=== PATIENT | female | born 1985 | race Caucasian/White ===

== ENCOUNTER 2023-03-18 21:30 | Outpatient (OUT) | payer OTHER, SELFPAY ==
[2023-03-22 15:10] LABS: Age Gdln ACOG Testing Note (.); HPV Aptima Negative (Negative); IGP, Aptima HPV, rfx 16/18,45 Note (.)
== END 2023-03-18 21:31 | disposition home or self-care (01) ==
PROVIDERS: Visit Provider Obstetrics & Gynecology
DX: Z01.419 Encounter for gynecological examination (general) (routine) without abnormal findings (principal)
CPT/HCPCS: 87624; G0145

== ENCOUNTER 2024-07-27 20:35 | Outpatient (REF) | payer OTHER, SELFPAY ==
--- OUTSIDE RECORDS SUMMARY | 2024-07-27 20:40 | XMS_ITS | CCD ---
Author Organization [facility] Care Team Providers Care Mechanical Systems Control Engineer Name Role Phone Norma Rosa Unavailable LAILA, DR RAMON Admitting Unavailable LAILA, DR RAMON Attending Unavailable MISC, DR MANN Primary Care Unavailable LAILA, DR RAMON Consulting Unavailable Defrance Maryellen GARIBAY Primary Care Provider MARYELLEN STRONG Attending Unavailable DEFEMILY, MARYELLEN Acosta Referring Unavailable DEFRANCE, MARYELLEN Acosta Primary Care Unavailable DEFMARYELLEN DIAZ Attending Unavailable DEFEMILY, MARYELLEN Acosta Referring Unavailable DEFRANCE, MARYELLEN Acosta Primary Care Unavailable DEFRANCEMARYELLEN Attending Unavailable DEFRANCE, MARYELLEN Acosta Referring Unavailable DEFRANCE, MARYELLEN Acosta Primary Care Unavailable YENNY ULLOA Attending Unavailable LAILAYENNY Attending Unavailable LAILAYENNY Attending Unavailable LAILAYENNY Attending Unavailable Defrance Maryellen GARIBAY Primary Care Provider LETICIA PACHECO Attending Unavailable DEFRANCE, MARYELLEN Referring Unavailable ROSENDALETICIA LOPEZ Attending Unavailable ROSENDALETICIA LOPEZ Referring Unavailable BRENT ALMONTE Attending Unavailable DEFRANCEMARYELLEN Referring Unavailable DEFRANCE, MARYELLEN Acosta Primary Care Unavailable BRENT ALMONTE Attending Unavailable DEFRANCEMARYELLEN Referring Unavailable DEFRANCE, MARYELLEN Acosta Primary Care Unavailable BRENT ALMONTE Attending Unavailable DEFRANCEMARYELLEN Referring Unavailable DEFRANCE, MARYELLEN Acosta Primary Care Unavailable BRENT ALMONTE Attending Unavailable MARYELLEN STRONG Referring Unavailable DEFRANCE, MARYELLEN Acosta Primary Care Unavailable BRENT ALMONTE Attending Unavailable DEFRANCE, MARYELLEN Acosta Referring Unavailable DEFRANCE, MARYELLEN Acosta Primary Care Unavailable BRENT ALOMNTE Attending Unavailable DEFRANCE, MARYELLEN Acosta Referring Unavailable DEFRANCE, MARYELLEN Acosta Primary Care Unavailable BRENT ALMONTE Attending Unavailable DEFRANCE, MARYELLEN Acosta Referring Unavailable DEFRANCE, MARYELLEN Acosta Primary Care Unavailable BRENT ALMONTE Attending Unavailable DEFRANCE, MARYELLEN Acosta Referring Unavailable DEFRANCE, MARYELLEN Acosta Primary Care Unavailable BRENT ALMONTE Attending Unavailable DEFRANCE, MARYELLEN Acosta Referring Unavailable DEFRANCE, MARYELLEN Acosta Primary Care Unavailable DEFRANCE, MARYELLEN Acosta Referring Unavailable DEFRANCE, MARYELLEN Acosta Primary Care Unavailable DEFRANCE, MARYELLEN T Referring Unavailable DEFRANCE, MARYELLEN Acosta Primary Care Unavailable DEFRANCE, MARYELLEN T Referring Unavailable DEFRANCE, MARYELLEN T Primary Care Unavailable BRENT ALMONTE Attending Unavailable DEFRANCE, MARYELLEN Acosta Referring Unavailable DEFRANCE, MARYELLEN Acosta Primary Care Unavailable BRENT ALMONTE Attending Unavailable DEFRANCE, MARYELLEN T Referring Unavailable DEFRANCE, MARYELLEN T Primary Care Unavailable BRENT ALMONTE Attending Unavailable DEFRANCE, MARYELLEN T Referring Unavailable DEFRANCE, MARYELLEN T Primary Care Unavailable BRENT ALMONTE Attending Unavailable DEFRANCE, MARYELLEN Acosta Referring Unavailable DEFRANCE, MARYELLEN Acosta Primary Care Unavailable LETICIA PACHECO Referring Unavailable DEFRANCE, MARYELLEN Acosta Primary Care Unavailable LETICIA PACHECO Referring Unavailable DEFRANCE, MARYELLEN Acosta Primary Care Unavailable DEFRANCE, MARYELLEN Acosta Referring Unavailable DEFRANCE, MARYELLEN Giselle Primary Care Unavailable Rubio Yap MD Primary Care Provider Maryellen Strong MD Primary Care Provider [phone] Allergies Allergy Classification Reported Allergen(s) Allergy Type Date of Onset Reaction(s) Facility (1 source) Amoxicillin Drug Allergy 12-02-2012 [facility] Rep[facility] Medications Current Medications Medication Drug Class(es) Dates Sig (Normalized) Sig (Original) [id number] 200 actuat albuterol 0.09 mg/actuat metered dose inhaler (1 source) beta2-Adrenergic Agonist Start: 07-04-2021 take 2 puff(s) by inhalation four times daily as needed Albuterol Sulfate HFA 108 (90 Base) MCG/ACT 2 puffs Inhalation qid prn Jun, Active ascorbic acid 1000 mg oral tablet (20 sources) Vitamin C take 1 tablet by mouth in the morning ascorbic acid (Vitamin C) 1000 MG tablet Take 1,000 mg by mouth in the morning. Active azithromycin 250 mg oral tablet (1 source) Macrolide Antimicrobial Start: 02-10-2024 End: 02-22-2024 take 1 tablet by mouth in the morning, then take 2 tablets by mouth once daily, then take 1 tablet by mouth once daily azithromycin (ZITHROMAX) 250 mg tablet Take 1 tablet (250 mg total) by mouth in the morning for 12 days. Take 2 tablets the first day, then 1 tablet daily for 4 days.. 6 tablet 1 02/10/2024 02/22/2024 Active bisacodyl 5 mg delayed release oral tablet (19 sources) Stimulant Laxative End: 10-02-2023 take 1 tablet by mouth once daily bisacodyl (Dulcolax) 5 MG EC tablet Take 5 mg by mouth 1 (one) time each day at the same time Active 12 hr buPROPion hydrochloride 100 mg extended release oral tablet (20 sources) Aminoketone Start: 02-27-2023 End: 06-29-2024 take 1 tablet by mouth every twelve hours in the morning buPROPion SR (Wellbutrin SR) 100 MG 12 hr tablet Take 100 mg by mouth in the morning. 02/27/2023 Active take 1 tablet by mouth once elisha y Wellbutrin 100 MG 1 tablet Orally DAILY Active busPIRone hydrochloride 15 m g oral tablet (20 sources) Start: 02-27-2023 End: 03-02-2024 busPIRone (Buspar) 15 MG tablet Take 15 mg by mouth in the morning and 15 mg at noon and 15 mg in the evening. 02/27/2023 Active busPIRone HCl Ac tive dicyclomine hydrochloride 20 mg oral tablet (1 source) Anticholinergic Start: 04-13-2019 Dicyclomine HCl 20 MG 1 tablet Orally PRN for 30 days PRN Mar, Active DULoxetine 60 mg delayed release oral capsule (11 sources) Serotonin and Norepinephrine Reuptake Inhibitor Start: 05-30-2023 End: 02-04-2024 take 1 capsule by mouth in the morning DULoxetine (CYMBALTA) 60 mg capsule Indications: Major depressive disorder, recurrent episode, moderate (CMS-HCC) , Generalized anxiety disorder Take one capsule (60mg) by mouth in the morning. Take one capsule (60mg) by mouth in the afternoon. 60 capsule 6 05/30/2023 Active Start: 02-27-2023 DULoxetine (CY MBALTA) 30 mg capsule Indications: Major depressive disorder, recurrent episode, moderate (CMS-HCC) , Generalized anxiety disorder Take two capsules (60mg) by mouth in the morning. Take one capsule (30mg) by mouth in the afternoon. 90 capsule 3 02/27/2023 Active ethinyl estradiol 0.035 mg / norethindrone 1 mg oral tablet (9 sources) Estrogen Start: 03-18-2023 End: 03-17-2024 norethindrone-ethinyl estrad iol (Ortho-Novum, Nortrel) 1-35 MG-MCG tablet Indications: Well woman exam with routine gynecological exam , Chronic night sweats Take 1 tablet by mouth in the morning. 28 tablet 11 03/18/2023 02/04/2024 Discontinued (Other) Start: 03-18-2023 End: 03-17-2024 take [id number] ug by mouth once in the morning norethindrone-ethin estradioL (ORTHO-NOVUM 35) 1-35 mg-mcg per tablet Take 1 tablet by mouth in the morning. 03/18/2023 10/02/2023 Discontinued (Alternate therapy) famotidine 20 mg oral tablet (13 sources) Histamine-2 Receptor Antagonist Start: 07-01-2023 take 1 tablet by mouth once daily in the morning famotidine (PEPCID) 20 mg tablet take one tablet by mouth every morning 90 tablet 3 07/01/2023 Active Start: 08-27-2022 End: 02-04-2024 take 1 tablet by mouth once daily in the morning famotidine (PEPCID) 20 mg tablet TAKE ONE TABLET BY MOUTH EVERY MORNING 90 tablet 0 04/01/2023 07/01/2023 Discontinued take 1 tablet by lucy th every twenty-four hours Pepcid 20 MG 1 tablet at bedtime as needed Orally Once a day Active Magnesium (9 sources) take 1 tablet by lucy th once daily magnesium 200 MG tablet Take 200 mg by mouth 1 (one) time each day at the same time Active Magnesium 400 MG as directed Orally Once a day Active magnesium oxide 400 mg oral tablet (20 sources) Start: 02-18-2023 End: 07-24-2024 take 1 tablet by mouth in the morning magnesium oxide (MAGOX) 400 mg tablet Take 1 tablet (400 mg total) by mouth in the morning. 180 tablet 1 07/24/2024 Active 24 hr metFORMIN hydrochloride 500 mg extended release oral tablet (20 sources) Biguanide Start: 03-18-2024 take 2 tablets by mouth once daily at mealtime metFORMIN XR (Glucophage-XR) 500 MG 24 hr tablet Indications: Well woman exam with routine gynecological exam , Chronic night sweats , Encounter for weight management TAKE TWO TABLETS BY MOUTH EVERY EVENING. TAKE WITH MEALS. DO NOT CRUSH, CHEW , OR SPLIT 180 tablet 3 03/18/2024 Active Start: 03-18-2023 take 2 tablets by mo uth every twenty-four hours at mealtime metFORMIN XR (Glucophage-XR) 500 MG 24 hr tablet Indications: Well woman exam with routine gynecological exam , Chronic night sweats , Encounter for weight management Take 2 tablets (1,000 mg) by mouth in the evening. Take with meals Do not crush, chew, or split. 60 tablet 11 03/18/2023 Active take 1 tablet by lucy th once daily at breakfast metFORMIN (GLUCOPHAGE) 500 mg tablet Take 1 tablet (500 mg total) by mouth daily with breakfast. Active metoprolol tartrate 25 mg oral tablet (20 sources) beta-Adrenergic Soco Start: 09-26-2022 End: 02-10-2024 take 1 tablet by mouth once metoprolol tartrate (Lopressor) 25 MG tablet Take 25 mg by mouth 1 (one) time 09/26/2022 Active Metoprolol Tartr ate Active ondansetron 4 mg oral tablet (20 sources) Serotonin-3 Receptor Antagonist Start: 08-08-2022 take 1 tablet by mouth every six hours as needed for nausea ondansetron (Zofran) 4 MG tablet Take 4 mg by mouth every 6 (six) hours if needed for nausea 08/08/2022 Active Start: 11-25-2019 take 1 tablet by lucy th every six hours as needed Ondansetron HCl 4 MG 1 tablet Orally every 6 hours as needed for 30 days Nov, Active polyethylene glycol 3350 60527 mg powder for oral solution (6 sources) Osmotic Laxative Start: 01-24-2024 polyethylene glycol (GLYCOLAX) 17 gram/dose powder Take 17 g by mouth in the morning. 01/24/2024 Active microencapsulated potassium chloride 20 meq extended release oral tablet (20 sources) Start: 12-17-2023 take 1 tablet by mouth once daily at bedtime KLOR-CON M20 20 mEq CR tablet TAKE ONE TABLET BY MOUTH EVERY MORNING, AT NOON, IN THE EVENING, AND BEFORE BEDTIME 360 tablet 1 12/17/2023 Active Start: 04-01-2023 End: 12-17-2023 take 1 tablet by mouth at bedtime KLOR-CON M20 20 mEq CR tablet TAKE ONE TABLET BY MOUTH IN THE MORNING, AT NOON, IN THE EVENING AND BEFORE BEDTIME 360 tablet 04/01/2023 12/17/2023 Discontinued take 20 mEq by mouth once daily potassium chloride (Klor-Con) 20 MEQ packet Take 20 mEq by mouth 1 (one) time each day at the same time Active Potassium Chlori de Active psyllium seed, sugar, (METAMUCIL, SUGAR,) powder (6 sources) Start: 12-02-2023 psyllium seed, sugar, (METAMUCIL, SUGAR,) powder Mix 1 tablespoon of powder into 8 oz of water once daily 12/02/2023 Active sod ydyqb-gmvxix-lpcxiv bottle (NEILMED SINUS RINSE COMPLETE) packet with rinse device nasal solution (20 sources) Start: 09-28-2021 take 1 dose nasal route in the morning sod qeyva-jyonmw-pmflyo bottle (NEILMED SINUS RINSE COMPLETE) packet with rinse device nasal solution Indications: Chronic recurrent sinusitis Administer 1 packet into each nostril in the morning and 1 packet before bedtime. 60 packet 09/28/2021 Active Start: 09-28-2021 take 1 dose nasal ro chippewa-cree in the morning sod kghtq-echajg-nyamec bottle (NEILMED SINUS RINSE COMPLETE) packet with rinse device nasal solution Indications: Chronic recurrent sinusitis Administer 1 packet into each nostril in the morning and 1 packet before bedtime. 60 packet 0 09/28/2021 Active traZODone hydrochloride 100 mg oral tablet (20 sources) Serotonin Reuptake Inhibitor Start: 02-27-2023 End: 06-26-2024 take 2 tablets by mouth at bedtime traZODone (Desyrel) 100 MG tablet Take 200 mg by mouth at bedtime 02/27/2023 Active take 1 tablet by lucy th every twenty-four hours traZODone HCl 300 MG 1 tablet at bedtime Orally Once a day Active Completed/Discontinued Medications Medication Drug Class(es) Dates Sig (Normalized) Sig (Original) colestipol hydrochloride 1000 mg oral tablet (1 source) Bile Acid Sequestrant Start: 10-28-2019 take 2 tablets by mouth every twenty-four hours Colestipol HCl 1 GM 2 tablets Orally Once a day for 30 day(s) Oct, Not-Taking ergocalciferol 1.25 mg oral capsule (8 sources) Provitamin D2 Compound End: 02-04-2024 take 1 capsule by mouth every week ergocalciferol (Vitamin D-2) 1.25 MG (09104 UT) capsule Take 1 capsule by mouth 1 (one) time per week 02/04/2024 Discontinued (Other) End: 10-02-2023 take 1 capsule by mouth once ergocalciferol (DRISDOL) 1,250 mcg (50,000 unit) capsule Take 1 capsule (50,000 Units total) by mouth every 14 (fourteen) days. 10/02/2023 Discontinued (Alternate therapy) ethinyl estradiol 0.02 mg / levonorgestrel 0.1 mg oral tablet (20 sources) Progestin, Estrogen, Progestin-containing Intrauterine Device Start: 04-02-2024 End: 07-27-2024 take 1 tablet by mouth once daily Lessina 0.1-20 MG-MCG tablet Indications: Uses control TAKE 1 TABLET BY MOUTH DAILY 84 tablet 12 04/02/2024 07/27/2024 Discontinued (Other) Start: 02-18-2023 take 0.1-20 tablets by mouth once daily levonorgestrel-ethinyl estradiol (Lessina) 0.1-20 MG-MCG tablet Indications: Uses control TAKE ONE TABLET BY MOUTH DAILY 84 tablet 12 02/18/2023 Active Start: 08-07-2017 End: 02-10-2024 LARISSIA 0.1-20 mg-mcg per t ablet 08/07/2017 02/10/2024 Discontinued Start: 08-07-2017 LARISSIA 0.1-2 0 mg-mcg per tablet 08/07/2017 Active Start: 08-07-2017 LARISSIA 0.1-2 0 mg-mcg per tablet take 1 tablet by lucy th every twenty-four hours Larissia 0.1-20 MG-MCG 1 tablet Orally Once a day Active levocetirizine dihydrochloride 5 mg oral tablet (8 sources) Histamine-1 Receptor Antagonist Start: 02-01-2022 End: 10-02-2023 take 1 tablet by mouth once daily levocetirizine (XYZAL) 5 mg tablet Indications: Allergic rhinitis, unspecified seasonality, unspecified trigger Take 1 tablet (5 mg total) by mouth nightly. 30 tablet 5 02/01/2022 10/02/2023 Discontinued (Alternate therapy) lisinopril 20 mg oral tablet (20 sources) Angiotensin Converting Enzyme Inhibitor Start: 10-03-2023 End: 02-10-2024 take 1.5 tablets by mouth in the morning lisinopriL (PRINIVIL,ZESTRIL) 20 mg tablet Take 1.5 tablets (30 mg total) by mouth in the morning. 135 tablet 1 12/17/2023 02/10/2024 Discontinued (Alternate therapy) Start: 11-19-2022 End: 02-04-2024 take 1 tablet by mouth once daily in the morning lisinopriL (PRINIVIL,ZESTRIL) 20 mg tablet TAKE ONE TABLET BY MOUTH EVERY MORNING 90 tablet 1 06/18/2023 Active Lisinopril Activ e pantoprazole 40 mg delayed release oral tablet (13 sources) Proton Pump Inhibitor Start: 05-21-2022 End: 02-04-2024 take 1 tablet by mouth once daily in the morning pantoprazole (PROTONIX) 40 mg EC tablet TAKE ONE TABLET BY MOUTH EVERY MORNING 90 tablet 0 04/01/2023 07/03/2023 Discontinued (Reorder) take 1 tablet by lucy th every twenty-four hours Pantoprazole Sodium 40 MG 1 tablet Orall y Once a day Active phentermine hydrochloride 37.5 mg oral tablet (8 sources) Sympathomimetic Amine Anorectic Start: 06-20-2023 End: 10-02-2023 take 0.5 tablet by mouth once daily before breakfast phentermine (ADIPEX-P) 37.5 mg tablet Indications: BMI 34.0-34.9,adult Take 0.5 tablets (18.75 mg total) by mouth every morning before breakfast. 30 tablet 06/20/2023 10/02/2023 Discontinued (Alternate therapy) Start: 04-24-2023 End: 02-04-2024 take 1 tablet by mouth before mealtime phentermine (Adipex-P) 37.5 MG tablet Indications: Encounter for weight management Take 1 tablet (37.5 mg) by mouth in the morning. Take before meals. 30 tablet 04/24/2023 02/04/2024 Discontinued (Other) tiZANidine 2 mg oral tablet (13 sources) Central alpha-2 Adrenergic Agonist Start: 01-22-2023 End: 07-27-2024 take 1 tablet by mouth every six hours as needed tiZANidine (Zanaflex) 2 MG tablet Take 2 mg by mouth every 6 (six) hours if needed for muscle spasms 01/22/2023 07/27/2024 Discontinued (Other) Problems Active Problems Problem Classification Problem Date Documented Da te Episodic/Chronic Alcohol-related disorders (20 sources) Alcohol abuse; Translations: [Alcohol dependence, in remission] Onset: 01-10-2021 Resolved: 01-21-2023 01-21-2023 Chronic Anxiety disorders (20 sources) Generalized anxiety disorder; Translations: [Generalized anxiety disorder] Onset: 02-21-2018 02-21-2018 Chronic Contraceptive and procreative management (5 sources) Patient encounter status; Translations: [Encounter for other general counseling and advice on contraception] 02-04-2024 Episodic Esophageal disorders (20 sources) Gastro-esophageal reflux disease with esophagitis; Translations: [Gastro-esophageal reflux disease with esophagitis] Onset: 09-06-2017 09-06-2017 Chronic Headache; including migraine (20 sources) Migraine; Translations: [Migraine, unspecified, not intractable, without status migrainosus] Onset: 09-06-2017 09-06-2017 Chronic Immunizations and screening for infectious disease (2 sources) Contact with and (suspected) exposure to other viral communicable diseases; Translations: [Encounter for screening for human papillomavirus (HPV)] Onset: 07-04-2021 Resolved: 07-04-2021 Episodic Malaise and fatigue (3 sources) Fatigue; Translations: [Chronic fatigue, unspecified] Onset: 11-18-2023 10-08-2023 Chronic Menstrual disorders (2 sources) Menometrorrhagia; Translations: [Excessive and frequent menstruation with irregular cycle] 07-27-2024 Chronic Mood disorders (20 sources) Recurrent major depressive episodes, moderate ; Translations: [Major depressive disorder, recurrent, moderate] Onset: 02-21-2018 02-21-2018 Chronic Nephritis; nephrosis; renal sclerosis (9 sources) Other specified renal tubulo-interstitial diseases; 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] Onset: 09-06-2017 02-10-2024 Chronic Other diseases of kidney and ureters (1 source) Renal mass; Translations: [Other specified disorders of kidney and ureter] 10-10-2023 Chronic Other diseases of kidney and ureters (1 source) Other specified disorders of kidney and ureter; Translations: [Other specified disorders of kidney and ureter] Onset: 10-28-2023 Chronic Other female genital disorders (2 sources) Abnormal uterine bleeding; Translations: [Abnormal uterine and vaginal bleeding, unspecified] 02-04-2024 Chronic Other gastrointestinal disorders (1 source) Irritable bowel syndrome with diarrhea; Translations: [Irritable bowel syndrome with diarrhea] Chronic Other gastrointestinal disorders (1 source) Irritable bowel syndrome; Translations: [Mixed irritable bowel syndrome] Chronic Other liver diseases (2 sources) Liver disease, unspecified; Translations: [Liver disease, unspecified] Onset: 01-30-2024 Chronic Other nutritional; endocrine; and metabolic disorders (2 sources) Hypomagnesemia; 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] Onset: 09-06-2017 Chronic Other nutritional; endocrine; and metabolic disorders (1 source) Body mass index (BMI) 34.0-34.9, adult; Translations: [Body mass index (BMI) 34.0-34.9, adult] Onset: 06-20-2023 Chronic Other nutritional; endocrine; and metabolic disorders (17 sources) Gitelman syndrome; 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] Onset: 09-06-2017 09-06-2017 Chronic Other nutritional; endocrine; and metabolic disorders (20 sources) Severe obesity; Translations: [Morbid (severe) obesity due to excess calories] Onset: 11-22-2017 11-22-2017 Chronic Other nutritional; endocrine; and metabolic disorders (1 source) Body mass index 30+ - obesity; Translations: [Body mass index (BMI) 34.0-34.9, adult] 06-20-2023 Chronic Other screening for suspected conditions (not mental disorders or infectious disease) (4 sources) Encounter for screening for malignant neoplasm of cervix; Translations: [ENC SCREENING MALIG NEOPLASM CERV] Onset: 03-12-2022 Episodic Other upper respiratory disease (20 sources) Allergic rhinitis; Translations: [Allergic rhinitis, unspecified] Onset: 05-22-2017 05-22-2017 Chronic Other upper respiratory infections (20 sources) Chronic recurrent sinusitis; Translations: [Chronic sinusitis, unspecified] Onset: 12-31-2018 12-31-2018 Chronic Residual codes; unclassified (20 sources) Obstructive sleep apnea syndrome; Translations: [Obstructive sleep apnea (adult) (pediatric)] Onset: 05-22-2017 05-22-2017 Chronic Unclassified (1 source) Sinus Problem Onset: 02-10-2024 Unclassified (1 source) BP issues Onset: 10-02-2023 Unclassified (1 source) Annual Exam Onset: 06-20-2023 Past or Other Problems Problem Classification Problem Date Documented Da te Episodic/Chronic Abdominal pain (3 sources) Right upper quadrant pain; Translations: [Right upper quadrant pain] Onset: 10-02-2023 10-02-2023 Episodic Acute and chronic tonsillitis (20 sources) Hypertrophy of tonsils; Translations: [Hypertrophy of tonsils] Onset: 05-22-2017 Resolved: 08-22-2017 08-22-2017 Chronic Calculus of urinary tract (20 sources) Kidney stone; Translations: [Calculus of kidney] Onset: 05-30-2018 05-30-2018 Episodic Fluid and electrolyte disorders (2 sources) Hypokalemia; Translations: [Hypokalemia] Onset: 09-06-2017 Episodic Gastrointestinal hemorrhage (1 source) Hematochezia; Translations: [Melena] Episodic Mood disorders (20 sources) Mood disorders Onset: 02-27-2023 Resolved: 02-10-2024 02-27-2023 Nausea and vomiting (1 source) Nausea; Translations: [Nausea] Episodic Other diseases of kidney and ureters (1 source) Cyst of kidney; Translations: [Cyst of kidney, acquired] 10-10-2023 Episodic Other diseases of kidney and ureters (1 source) Cyst of kidney, acquired; Translations: [Cyst of kidney, acquired] Onset: 10-28-2023 Episodic Other gastrointestinal disorders (1 source) Diarrhea; Translations: [Diarrhea, unspecified] Episodic Other gastrointestinal disorders (3 sources) Change in bowel habit; Translations: [Change in bowel habit] Onset: 12-02-2023 Episodic Other upper respiratory disease (20 sources) Deviated nasal septum; Translations: [Deviated nasal septum] Onset: 05-22-2017 Resolved: 08-22-2017 08-22-2017 Episodic Other upper respiratory infections (20 sources) Acute upper respiratory infection, unspecified; Translations: [Acute sinusitis, unspecified] Onset: 12-02-2018 Resolved: 07-04-2021 Episodic Substance-related disorders (20 sources) Cannabis dependence; Translations: [Cannabis dependence, uncomplicated] Onset: 02-21-2018 Resolved: 12-13-2022 12-13-2022 Chronic Unclassified (20 sources) Onset: 06-09-2019 06-09-2019 Results Test Name Value Interpretation Reference Range Facility 36on 06-25-2024 36 Left vm [facility] 36on 01-30-2024 36 [employer]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 [facility] 37on 01-30-2024 37 Take fiber supplements along with plenty of water. Supplements include: Psyllium (sample brand name: Metamucil) Methylcellulose (sample brand name: Citrucel) Calcium polycarbophil (sample brand name: FiberCon) Wheat dextrin (sample brand name: Benefiber) Start slow with ??? tablespoon every other day, then gradually increase to 1 tablespoons/day. [facility] Follow-Upon 01-30-2024 Follow-Up [id number] Myah Carpenter 1985 F Date Provider Department Center 01/30/2024 LETICIA PETERSON [facility] No family history on file Level of Service:68142 LA OFFICE/OUTPATIENT ESTABLISHED LOW MDM 20 MIN Reason for Visit and Comments: Follow-up [597123] [facility] Orders Onlyon 01-24-2024 Orders Only [id number] Myah Carpenter 1985 F Date Provider Department Center 01/24/2024 LETICIA PETERSON [facility] No family history on file [facility] XR ABDOMEN AP 1 VWon 024 XR ABDOMEN AP 1 VW XR ABDOMEN AP 1 VW CLINICAL HISTORY: Change in bowel habits Comparison: None Views: 1 view FINDINGS: * Nonobstructive bowel gas pattern * No free air * No suspicious calcification * No definite organomegaly * Large amount retained fecal content particularly in the right colon IMPRESSION: * Unremarkable supine abdomen as above Finalized by Eyal Gonzalez MD on 01/24/2024 2:16 PM Normal [facility] [facility] CRP [Mass/Vol]on 01-23-2024 C REACTIVE PROTEIN 0.4 mg/dL Normal 0.000-0.744 [facility] Comment on above: Performed By: #### C BCA, CMP, 81080-5 #### [facility] ([id number]) [address], [address] [place] [address] ESR Photometric method (Bld) [Velocity]on 01-23-2024 ESR, ERYTHROCYTE SEDIMENTATION RATE 4 mm/h Normal 0-20 [facility] Comment on above: Performed By: #### Demarcus BCA, CMP, 84988-2 #### [facility] ([id number]) [address], [address] [place] [address] IGAon 01-23-2024 IgA [Mass/Vol] 108 mg/dL Normal 68-378 [facility] Comment on above: Performed By: #### C BCA, CMP, 73752-8 #### [facility] ([id number]) [address], [address] [place] [address] tTG IgA IA Qn (S)on 01-23-20 24 TTG AB IGA <1.2 Normal <4.0 (Negative) [facility] Comment on above: Result Comment: NOTE Test Performed by: [facility] [address] [place] [address] Division Service Manager: Alfreda Freire Ph.D.; CLIA# [id number] Performed By: #### C BCA, CMP, 46930-0 #### [facility] ([id number]) [address], [address] [place] [address] Abstracton 12-13-2023 Abstract [id number] Myah Carpenter 1985 F Date Provider Department [place] 12/13/2023 [id number] FRANK [facility] No family history on file [facility] 36on 12-04-2023 36 [employer] Vice President called and left voice mail with [facility] that personal lines underwriter needs records of last colonoscopy and if they could call back or they could fax to personal lines underwriter at [phone]. [facility] 37on 12-02-2023 37 Take fiber supplements along with plenty of water. Supplements include: Psyllium (sample brand name: Metamucil) Methylcellulose (sample brand name: Citrucel) Calcium polycarbophil (sample brand name: FiberCon) Wheat dextrin (sample brand name: Benefiber) Start slow with ??? tablespoon every other day, then gradually increase to 1 tablespoon/day. [facility] Office Visiton 12-02-2023 Follow-up visit [id number] Myah Carpenter 1985 F Date Provider Department Center 12/02/2023 Grover7-LETICIA PACHECO [facility] No family history on file Level of Service:72516 [place] OFFICE/OUTPATIENT NEW MODERATE MDM 45 MINUTES Reason for Visit and Comments: New Patient [632] - Abdominal pain with nausea and alternating bowel habits. MRI results with liver lesions. Normal [facility] CBC AND AUTO DIFFon 11-18-19 24 ABSOLUTE BASOPHIL 0.0 X10E9/L Normal 0.0-0.2 [facility] Comment on above: Performed By: #### C BCA, CMP, FEPR, 00155-0, LIVR #### [facility] ([id number]) [address], [address] [place] [address] ABSOLUTE NEUTROPHIL 2.8 X10E9/L Normal 1.5-6.6 [facility] Comment on above: Performed By: #### C BCA, CMP, FEPR, 26543-2, LIVR #### [facility] ([id number]) [address], [address] [place] [address] Basophils/100 WBC (Bld) 0.5 % Normal [facility] Comment on above: Performed By: #### C BCA, CMP, FEPR, 17643-2, LIVR #### [facility] ([id number]) [address], [address] [place] [address] Eosinophils (Bld) [#/Vol] 0.1 10*3/uL Normal 0.0-0.4 [facility] Comment on above: Performed By: #### C BCA, CMP, FEPR, 85576-4, LIVR #### [facility] ([id number]) [address], [address] [place] [address] Eosinophils/100 WBC (Bld) 1.4 % Normal [facility] Comment on above: Performed By: #### C BCA, CMP, FEPR, 44109-7, LIVR #### [facility] ([id number]) [address], [address] [place] [address] Erythrocyte distribution width (RBC) [Ratio] 12.7 % Normal 11.5-15.0 [facility] Comment on above: Performed By: #### C BCA, CMP, FEPR, 73867-5, LIVR #### [facility] ([id number]) [address], [address] [place] [address] Hematocrit (Bld) [Volume fraction] 40.7 % Normal 35-47 [facility] Comment on above: Performed By: #### C BCA, CMP, FEPR, 46366-9, LIVR #### [facility] ([id number]) [address], [address] [place] [address] Hemoglobin (Bld) [Mass/Vol] 14.1 g/dL Normal 11.7-15.5 [facility] Comment on above: Performed By: #### C BCA, CMP, FEPR, 11627-3, LIVR #### [facility] ([id number]) [address], [address] [place] [address] Lymphocytes (Bld) [#/Vol] 2.0 10*3/uL Normal 1.0-3.5 [facility] Comment on above: Performed By: #### C BCA, CMP, FEPR, 52064-4, LIVR #### [facility] ([id number]) [address], [address] [place] [address] Lymphocytes/100 WBC (Bld) 39.0 % Normal [facility] Comment on above: Performed By: #### C BCA, CMP, FEPR, 34496-2, LIVR #### [facility] ([id number]) [address], [address] [place] [address] MCH (RBC) [Entitic mass] 30.1 pg Normal 27-34 [facility] Comment on above: Performed By: #### C BCA, CMP, FEPR, 13453-8, LIVR #### [facility] ([id number]) [address], [address] [place] [address] MCHC (RBC) [Mass/Vol] 34.6 g/dL Normal 32-36 [facility] Comment on above: Performed By: #### C BCA, CMP, FEPR, 49431-7, LIVR #### [facility] ([id number]) [address], [address] [place] [address] MCV (RBC) [Entitic vol] 87 fL Normal 80-100 [facility] Comment on above: Performed By: #### C BCA, CMP, FEPR, 37425-3, LIVR #### [facility] ([id number]) [address], [address] [place] [address] Monocytes (Bld) [#/Vol] 0.3 10*3/uL Normal 0-0.9 [facility] Comment on above: Performed By: #### C BCA, CMP, FEPR, 36895-6, LIVR #### [facility] ([id number]) [address], [address] [place] [address] Monocytes/100 WBC (Bld) 5.2 % Normal [facility] Comment on above: Performed By: #### C BCA, CMP, FEPR, 86782-8, LIVR #### [facility] ([id number]) [address], [address] [place] [address] Neutrophils/100 WBC (Bld) 53.9 % Normal [facility] Comment on above: Performed By: #### C BCA, CMP, FEPR, 23791-9, LIVR #### [facility] ([id number]) [address], [address] [place] [address] Platelet mean volume (Bld) [Entitic vol] 7.9 fL Normal 7-12 [facility] Comment on above: Performed By: #### C BCA, CMP, FEPR, 51083-6, LIVR #### [facility] ([id number]) [address], [address] [place] [address] Platelets (Bld) [#/Vol] 341 10*3/uL Normal 150-450 [facility] Comment on above: Performed By: #### C BCA, CMP, FEPR, 12765-5, LIVR #### [facility] ([id number]) [address], [address] [place] [address] RBC COUNT 4.67 X10E12/L Normal 3.80-5.20 [facility] Comment on above: Performed By: #### C BCA, CMP, FEPR, 59057-5, LIVR #### [facility] ([id number]) [address], [facility] [address] [place] [address] WBC (Bld) [#/Vol] 5.2 10*3/uL Normal 4.0-11.0 [facility] Comment on above: Performed By: #### C BCA, CMP, FEPR, 57236-7, LIVR #### [facility] ([id number]) [address], [address] [place] [address] COMPREHENSIVE METABOLIC PANE Gurinder 11-18-2023 Albumin [Mass/Vol] 4.3 g/dL Normal 3.2-5.3 [facility] Comment on above: Performed By: #### C BCA, CMP, FEPR, 78732-6, LIVR #### [facility] ([id number]) [address], [address] [place] [address] ALP [Catalytic activity/Vol] 60 U/L Normal 39-130 [facility] Comment on above: Performed By: #### C BCA, CMP, FEPR, 94531-0, LIVR #### [facility] ([id number]) [address], [address] [place] [address] ALT [Catalytic activity/Vol] 24 U/L Normal 0-31 [facility] Comment on above: Performed By: #### C BCA, CMP, FEPR, 34038-3, LIVR #### [facility] ([id number]) [address], [address] [place] [address] Anion gap [Moles/Vol] 11 mmol/L Normal 5-15 [facility] Comment on above: Performed By: #### C BCA, CMP, FEPR, 70056-3, LIVR #### [facility] ([id number]) [address], [address] [place] [address] AST [Catalytic activity/Vol] 15 U/L Normal 0-41 [facility] Comment on above: Performed By: #### C BCA, CMP, FEPR, 74459-1, LIVR #### [facility] ([id number]) [address], [address] [place] [address] Bilirubin [Mass/Vol] 0.8 mg/dL Normal 0.3-1.2 [facility] Comment on above: Performed By: #### C BCA, CMP, FEPR, 48199-7, LIVR #### [facility] ([id number]) [address], [address] [place] [address] Calcium [Mass/Vol] 9.3 mg/dL Normal 8.5-10.5 [facility] Comment on above: Performed By: #### C BCA, CMP, FEPR, 15945-3, LIVR #### [facility] ([id number]) [address], [address] [place] [address] Chloride [Moles/Vol] 105 mmol/L Normal 98-109 [facility] Comment on above: Performed By: #### C BCA, CMP, FEPR, 99758-4, LIVR #### [facility] ([id number]) [address], [address] [place] [address] CO2 [Moles/Vol] 24 mmol/L Normal 22-32 [facility] Comment on above: Performed By: #### C BCA, CMP, FEPR, 77150-4, LIVR #### [facility] ([id number]) [address], [address] [place] [address] Creatinine [Mass/Vol] 0.99 mg/dL Normal 0.40-1.00 [facility] Comment on above: Result Comment: METH OD TRACEABLE TO IDMS STANDARD Performed By: #### C BCA, CMP, FEPR, 98029-9, LIVR #### [facility] ([id number]) [address], [address] [place] [address] GFR/1.73 sq M.predicted among non-blacks MDRD (S/P/Bld) [Vol rate/Area] 75 mL/min/{1.73_m2} Normal >59 [facility] Comment on above: Result Comment: Reported eGFR is based on the CKD-EPI 2020 equation that does not use a race coefficient. Performed By: #### C BCA, CMP, FEPR, 77668-3, LIVR #### [facility] ([id number]) [address], [address] [place] [address] Glucose [Mass/Vol] 95 mg/dL Normal 65-99 [facility] Comment on above: Performed By: #### C BCA, CMP, FEPR, 15722-9, LIVR #### [facility] ([id number]) [address], [address] [place] [address] Potassium [Moles/Vol] 4.2 mmol/L Normal 3.5-5.0 [facility] Comment on above: Performed By: #### C BCA, CMP, FEPR, 61194-8, LIVR #### [facility] ([id number]) [address], [address] [place] [address] Protein [Mass/Vol] 7.0 g/dL Normal 6.0-8.0 [facility] Comment on above: Performed By: #### C BCA, CMP, FEPR, 41874-3, LIVR #### [facility] ([id number]) [address], [address] [place] [address] Sodium [Moles/Vol] 140 mmol/L Normal 134-146 [facility] Comment on above: Performed By: #### C BCA, CMP, FEPR, 74950-9, LIVR #### [facility] ([id number]) [address], [address] [place] [address] Urea nitrogen [Mass/Vol] 12 mg/dL Normal 5-23 [facility] Comment on above: Performed By: #### C BCA, CMP, FEPR, 66724-8, LIVR #### [facility] ([id number]) [address], [address] [place] [address] IRON PROFILEon 11-18-2023 Iron [Mass/Vol] 146 ug/dL Normal 50-170 [facility] Comment on above: Performed By: #### C BCA, CMP, FEPR, 56873-7, LIVR #### [facility] ([id number]) [address], [address] [place] [address] IRON BINDING 337 ug/dL Normal 250-425 [facility] Comment on above: Performed By: #### C BCA, CMP, FEPR, 45247-9, LIVR #### [facility] ([id number]) [address], [address] [place] [address] IRON SATURATION 43 % SATURATION Normal 15-50 [facility] Comment on above: Performed By: #### C BCA, CMP, FEPR, 37689-6, LIVR #### [facility] ([id number]) [address], [address] [address] LIVER PANELon 11-18-2023 Bilirubin.direct [Mass/Vol] 0.1 mg/dL Normal 0.0-0.4 [facility] Comment on above: Performed By: #### C BCA, CMP, FEPR, 10895-7, LIVR #### [facility] ([id number]) [address], [address] [place] [address] Lipid 1996 panelon Cholesterol [Mass/Vol] 166 mg/dL Normal 150-200 [facility] Comment on above: Performed By: #### C BCA, CMP, FEPR, 49076-9, LIVR #### [facility] ([id number]) [address] [address] Cholesterol in HDL [Mass/Vol] 31 mg/dL Low >39 [facility] Comment on above: Result Comment: HDL <40 mg/dL - High Risk HDL > or = 40mg/dL- Desirable HDL >60 mg/dL - Negative Risk Performed By: #### C BCA, CMP, FEPR, 98729-4, LIVR #### [facility] ([id number]) [address], [address] [place] [address] Cholesterol in LDL [Mass/Vol] 112 mg/dL Normal <130 [facility] Comment on above: Result Comment: LDL <100 mg/dL - Desirable LDL >160 mg/dL - High Risk Performed By: #### C BCA, CMP, FEPR, 54799-8, LIVR #### [facility] ([id number]) [address] [address] Cholesterol in VLDL [Mass/Vol] 23 mg/dL Normal 0-30 [facility] Comment on above: Performed By: #### C BCA, CMP, FEPR, 00682-7, LIVR #### [facility] ([id number]) [address] [address] CHOLESTEROL:HDL 5.4 High 1.0-5.0 [facility] Comment on above: Performed By: #### C BCA, CMP, FEPR, 56845-1, LIVR #### [facility] ([id number]) [address], [address] [address] Triglyceride [Mass/Vol] 117 mg/dL Normal 27-150 [facility] Comment on above: Performed By: #### C BCA, CMP, FEPR, 10898-9, LIVR #### [facility] ([id number]) [address] [address] MR ABDOMEN W WO CONTon 10-29 MR ABDOMEN W WO CONT MR ABDOMEN W WO CONT MR ABDOMEN W WO CONT HISTORY: Renal mass/cyst, indeterminant COMPARISON: Abdominal ultrasound 10/07/2023, CT abdomen pelvis 09/21/2021 TECHNIQUE: Multiplanar, multisequence MR images of the abdomen were obtained prior to and following the administration of 17.2 mL intravenous ProHance. FINDINGS: The lung bases are clear. The visualized portions of the heart and pericardium are unremarkable. Abdominal aorta is nonaneurysmal. Portal, splenic, superior mesenteric veins patent. Noncirrhotic morphology of the liver. Multiple (at least 5) lesions throughout the liver demonstrating increased signal on diffusion sequence (no corresponding ADC map). Lesions appear mildly T2 hyperintense and iso to slightly hyperintense on precontrast T1 imaging. Lesions demonstrate uniform early arterial enhancement without washout. Gallbladder surgically absent. No biliary dilatation. The pancreatic parenchyma is unremarkable. No mass or cystic lesion identified. The splenic parenchyma is unremarkable. The adrenal glands are unremarkable. Left kidney is unremarkable. Intrinsically T1 right upper pole renal cyst measures 14 mm. No convincing postcontrast enhancement. Visualized portions of the bowel in upper abdomen are unremarkable. No enlarged lymph nodes. IMPRESSION: * Queried right renal lesion consistent with benign hemorrhagic/proteinac eous cyst requires no further imaging follow-up. * Multiple enhancing lesions throughout the could represent hepatic adenomas and/or focal nodular hyperplasias or both. Correlate with use of oral contraceptives. MRI abdomen without and with contrast with Eovist in 3 months is recommended. Approved by Resident Kristian Cleary DO on 10/30/2023 1:57 PM ICarlo MD have personally reviewed the image(s) and agree with and/or edited the report Finalized by Carlo Henry MD on 10/30/2023 3:27 PM Normal [facility] US ABDOMEN LMTDon 10-10-2023 US ABDOMEN LMTD US ABDOMEN LMTD CLINICAL INFORMATION: RUQ abdominal pain TECHNIQUE: Ultrasound scanning of the abdomen was performed COMPARISON: No relevant prior studies available. FINDINGS: The visualized pancreas appears normal, the body and tail are obscured due to overlying bowel gas. Normal sonographic appearance of the liver, normal liver echogenicity, no focal lesion is identified. The portal vein is patent with hepatopedal flow. The gallbladder is been removed. Common duct is nondilated and measures 2.2 mm. No hydronephrosis of the right kidney. There is a mildly complex cyst in the superior right kidney measuring up to 1.4 cm. IMPRESSION: * Normal sonographic appearance of the liver, no biliary dilatation. * Mildly complex cyst in the superior right kidney measuring up to 1.4 cm. Consider further evaluation with dedicated CT or MRI. No right hydronephrosis. Finalized by Milagros Cuellar MD on 10/10/2023 12:38 AM Normal [facility] CBC AND AUTO DIFFon 10-07-19 ABSOLUTE BASOPHIL 0.0 X10E9/L Normal 0.0-0.2 [facility] Comment on above: Performed By: #### C BCA, CMP, 33994-2 #### [facility] ([id number]) [address], [address] [place] [address] ABSOLUTE NEUTROPHIL 4.3 X10E9/L Normal 1.5-6.6 [facility] Comment on above: Performed By: #### Demarcus INFANTE, CMP, 42533-3 #### [facility] ([id number]) [address], [address] [place] [address] Basophils/100 WBC (Bld) 0.4 % Normal [facility] Comment on above: Performed By: #### Demarcus BCA, CMP, 06084-2 #### [facility] ([id number]) [address], [address] [place] [address] Eosinophils (Bld) [#/Vol] 0.2 10*3/uL Normal 0.0-0.4 [facility] Comment on above: Performed By: #### Demarcus BCA, CMP, 27969-5 #### [facility] ([id number]) [address], [address] [place] [address] Eosinophils/100 WBC (Bld) 2.1 % Normal [facility] Comment on above: Performed By: #### C BCA, CMP, 34642-8 #### [facility] ([id number]) [address], [address] [place] [address] Erythrocyte distribution width (RBC) [Ratio] 12.6 % Normal 11.5-15.0 [facility] Comment on above: Performed By: #### C BCA, CMP, #### [facility] ([id number]) [address], [address] [place] [address] Hematocrit (Bld) [Volume fraction] 39.8 % Normal 35-47 [facility] Comment on above: Performed By: #### Demarcus INFANTE, CMP, 52927-4 #### [facility] ([id number]) [address], [address] [place] [address] Hemoglobin (Bld) [Mass/Vol] 13.5 g/dL Normal 11.7-15.5 [facility] Comment on above: Performed By: #### Demarcus INFANTE, CMP, #### [facility] ([id number]) [address], [facility] [address] [place] [address] Lymphocytes (Bld) [#/Vol] 2.1 10*3/uL Normal 1.0-3.5 [facility] Comment on above: Performed By: #### Demarcus INFANTE, CMP, #### [facility] ([id number]) [address], [address] [place] [address] Lymphocytes/100 WBC (Bld) 29.4 % Normal [facility] Comment on above: Performed By: #### Demarcus BCA, CMP, #### [facility] ([id number]) [address], [address] [place] [address] MCH (RBC) [Entitic mass] 29.8 pg Normal 27-34 [facility] Comment on above: Performed By: #### Demarcus BCA, CMP, #### [facility] ([id number]) [address], [address] [place] [address] MCHC (RBC) [Mass/Vol] 33.9 g/dL Normal 32-36 [facility] Comment on above: Performed By: #### Demarcus BCA, CMP, #### [facility] ([id number]) [address], [address] [place] [address] MCV (RBC) [Entitic vol] 88 fL Normal 80-100 [facility] Comment on above: Performed By: #### Demarcus INFANTE CMP, #### [facility] ([id number]) [address], [address] [place] [address] Monocytes (Bld) [#/Vol] 0.5 10*3/uL Normal 0-0.9 [facility] Comment on above: Performed By: #### Demarcus INFANTE CMP, #### [facility] ([id number]) [address], [facility] [address] [place] [address] Monocytes/100 WBC (Bld) 6.4 % Normal [facility] Comment on above: Performed By: #### Demarcus INFANTE CMP, #### [facility] ([id number]) [address], [address] [place] [address] Neutrophils/100 WBC (Bld) 61.7 % Normal [facility] Comment on above: Performed By: #### Demarcus INFANTE CMP, #### [facility] ([id number]) [address], [address] [place] [address] Platelet mean volume (Bld) [Entitic vol] 7.6 fL Normal 7-12 [facility] Comment on above: Performed By: #### Demarcus INFANTE CMP, #### [facility] ([id number]) [address], [address] [place] [address] Platelets (Bld) [#/Vol] 287 10*3/uL Normal 150-450 [facility] Comment on above: Performed By: #### Demarcus INFANTE, CMP, #### [facility] ([id number]) [address], [address] [place] [address] RBC COUNT 4.51 X10E12/L Normal 3.80-5.20 [facility] Comment on above: Performed By: #### C BCA, CMP, 13302-4 #### [facility] ([id number]) [address], [address] [place] [address] WBC (Bld) [#/Vol] 7.0 10*3/uL Normal 4.0-11.0 [facility] Comment on above: Performed By: #### C BCA, CMP, 52454-9 #### [facility] ([id number]) [address] [place] [address] COMPREHENSIVE METABOLIC PANE Gurinder 10-07-2023 Albumin [Mass/Vol] 4.1 g/dL Normal 3.2-5.3 [facility] Comment on above: Performed By: #### C BCA, CMP, 81689-7 #### [facility] ([id number]) [address], [address] [place] [address] ALP [Catalytic activity/Vol] 56 U/L Normal 39-130 [facility] Comment on above: Performed By: #### C BCA, CMP, 70436-8 #### [facility] ([id number]) [address], [address] [place] [address] ALT [Catalytic activity/Vol] 14 U/L Normal 0-31 [facility] Comment on above: Performed By: #### C BCA, CMP, 51241-8 #### [facility] ([id number]) [address], [address] [place] [address] Anion gap [Moles/Vol] 8 mmol/L Normal 5-15 [facility] Comment on above: Performed By: #### C BCA, CMP, 73938-9 #### [facility] ([id number]) [address], [address] [place] [address] AST [Catalytic activity/Vol] 12 U/L Normal 0-41 [facility] Comment on above: Performed By: #### C BCA, CMP, #### [facility] ([id number]) [address], [address] [place] [address] Bilirubin [Mass/Vol] 0.7 mg/dL Normal 0.3-1.2 [facility] Comment on above: Performed By: #### C BCA, CMP, #### [facility] ([id number]) [address], [address] [place] [address] Calcium [Mass/Vol] 9.0 mg/dL Normal 8.5-10.5 [facility] Comment on above: Performed By: #### C BCA, CMP, 62405-1 #### [facility] ([id number]) [address], [address] [place] [address] Chloride [Moles/Vol] 105 mmol/L Normal 98-109 [facility] Comment on above: Performed By: #### C BCA, [facility], #### [facility] ([id number]) [address], [address] [place] [address] CO2 [Moles/Vol] 29 mmol/L Normal 22-32 [facility] Comment on above: Performed By: #### C BCA, [facility] [address] [address], #### [facility] ([id number]) [address], [address] [place] [address] Creatinine [Mass/Vol] 0.94 mg/dL Normal 0.40-1.00 [facility] Comment on above: Result Comment: METH OD TRACEABLE TO IDMS STANDARD Performed By: #### C BCA, CMP, #### [facility] ([id number]) [address], [address] [place] [address] GFR/1.73 sq M.predicted among non-blacks MDRD (S/P/Bld) [Vol rate/Area] 80 mL/min/{1.73_m2} Normal >59 [facility] Comment on above: Result Comment: Reported eGFR is based on the CKD-EPI 2020 equation that does not use a race coefficient. Performed By: #### C LYNN INFANTE, [id number] #### [facility] ([id number]) [address], [address] [place] [address] Glucose [Mass/Vol] 89 mg/dL Normal 65-99 [facility] Comment on above: Performed By: #### Demarcus INFANTE [facility] [address] [address], [address]-1 #### [facility] ([id number]) [address] [place] [address] Potassium [Moles/Vol] 4.1 mmol/L Normal 3.5-5.0 [facility] Comment on above: Performed By: #### Demarcus INFANTE CMP, 76689-7 #### [facility] ([id number]) [address], [address] [place] [address] Protein [Mass/Vol] 6.5 g/dL Normal 6.0-8.0 [facility] Comment on above: Performed By: #### Demarcus INFANTE [facility] [address], [address]-8 #### [facility] ([id number]) [address] [place] [address] Sodium [Moles/Vol] 142 mmol/L Normal 134-146 [facility] Comment on above: Performed By: #### Demarcus INFANTE [facility] [address], [address]-8 #### [facility] ([id number]) [address] [place] [address] Urea nitrogen [Mass/Vol] 13 mg/dL Normal 5-23 [facility] Comment on above: Performed By: #### Demarcus INFANTE [facility] [address], [address]-3 #### [facility] ([id number]) [address] [place] [address] MAGNESIUMon 10-07-2023 Magnesium [Mass/Vol] 1.8 mg/dL Normal 1.8-2.6 [facility] Comment on above: Performed By: #### C BCA, CMP, [id number] #### [facility] ([id number]) [address] [place] [address] PAP ACOG PANEL 2: 30 to 65on 03-20-2022 . . Normal [facility] Comment on above: Result Comment: Perf ormed at: WB Performed By: #### [id number] #### [facility] [address] [address] [address] Andrew Castillo DIAGNOSIS: Comment Abnormal [facility] Comment on above: Result Comment: EPIT HELIAL CELL ABNORMALITY. ATYPICAL SQUAMOUS CELLS OF UNDETERMINED SIGNIFICANCE (ASC-US). Performed at: WB Performed By: #### [id number] #### [facility] [address] [address] [address] Andrew Castillo Electronically signed by: Comment Normal [facility] Comment on above: Result Comment: Ailyn Gaming MD, Pathologist Performed at: WB Performed By: #### [id number] #### [facility] [address] [address] [address] Andrew Castillo HPV Aptima Negative Normal Negative [facility] Comment on above: Result Comment: This nucleic acid amplification test detects fourteen high-risk HPV types (16,18,31,33,35,39,45,51,52,56,58,59,66,68) without differentiation. Performed at: =G Performed By: #### [id number] #### [facility] [address] [address] [address] Andrew Castillo HPV Genotype Reflex Comment Normal [facility] Comment on above: Result Comment: Crit eria not met, HPV Genotype not performed. Performed at: WB Performed By: #### [id number] #### [facility] [address] [address] [address] Andrew Castillo Methodology: Comment Normal [facility] Comment on above: Result Comment: This liquid based ThinPrep(R) pap test was screened with the use of an image guided system. Performed at: WB Performed By: #### [id number] #### [facility] [address] [address] [address] Andrew Castillo Note: Comment [facility] Comment on above: Result Comment: The Pap smear is a screening test designed to aid in the detection of premalignant and malignant conditions of the uterine cervix. It is not a diagnostic procedure and should not be used as the sole means of detecting cervical cancer. Both false-positive and false-negative reports do occur. . Performed at: WB Performed By: #### [id number] #### [facility] [address] [address] [address] Andrew Castillo Pathologist Provided ICD10 Comment [facility] Comment on above: Result Comment: [id number] Performed at: WB Performed By: #### [id number] #### [facility] [address] [place] [address] Dr. Andrew Castillo Performed by: Comment Normal [facility] Comment on above: Result Comment: Doris Harmon, Molder Offbearer (ASCP) Performed at: WB Performed By: #### [id number] #### [facility] [address] [place] [address] Dr. Andrew Castillo Recommendation: Comment Abnormal [facility] Comment on above: Result Comment: Sugg est follow up as clinically appropriate. Performed at: WB Performed By: #### [id number] #### [facility] [address] [place] [address] Dr. Andrew Castillo Specimen adequacy: Comment Normal [facility] Comment on above: Result Comment: Sati sfactory for evaluation. Endocervical and/or squamous metaplastic cells (endocervical component) are present. Performed at: WB Performed By: #### [id number] #### [facility] [address] [address] [address] Andrew Castillo Age Gdln ACOG Testing 30-65 [facility] Comment on above: Performed By: #### [id number] #### [facility] [address] [address] [address] Andrew Castillo COVID Quick Testingon 2021 Result Negative [employer] Other Quick Fluon 07-04-2021 FLUAV Ab CF (S) [Titer] Negative [employer] Other FLUBV Ab CF (S) [Titer] Negative [facility] [employer] Other Vital Signs Date Time Vital Sign Value Performing Clinician Facility 07-27-2024 14:15-0400 Body mass index (BMI) [Ratio] 33.13 kg/m2 Yenny Laila DO Work Phone: [facility] 07-27-2024 14:15-0400 Body weight 82.16 kg Yenny Laila DO Work Phone: [facility] 07-27-2024 14:15-0400 Diastolic blood pressure 74 mm[Hg] Yenny Laila DO Work Phone: [facility] 07-27-2024 14:15-0400 Systolic blood pressure 118 mm[Hg] Yenny Laila DO Work Phone: [facility] 02-17-2024 10:21-0500 Body mass index (BMI) [Ratio] 35.26 kg/m2 Yenny Laila DO Work Phone: [facility] 02-17-2024 10:21-0500 Body weight 87.45 kg Yenny Laila DO Work Phone: [facility] 02-17-2024 10:21-0500 Diastolic blood pressure 98 mm[Hg] Yenny Laila DO Work Phone: [facility] 02-17-2024 10:21-0500 Systolic blood pressure 158 mm[Hg] Yenny Laila DO Work Phone: [facility] 02-10-2024 13:50-0400 Body height 160 cm Maryellen Strong MD Work Phone: [facility] 02-10-2024 13:50-0400 Body mass index (BMI) [Ratio] 33.48 kg/m2 Maryellen Strong MD Work Phone: [facility] [employer] [facility] 02-10-2024 13:50-0400 Body temperature 97.2 [degF] Maryellen Strong MD Work Phone: [facility] 02-10-2024 13:50-0400 Body weight 85.73 kg Maryellen Strong MD Work Phone: [facility] 02-10-2024 13:50-0400 Diastolic blood pressure 90 mm[Hg] Maryellen Strong MD Work Phone: [facility] 02-10-2024 13:50-0400 Heart rate 80 /min Maryellen Strong MD Work Phone: [facility] 02-10-2024 13:50-0400 Respiratory rate 16 /min Maryellen Strong MD Work Phone: [facility] 02-10-2024 13:50-0400 Systolic blood pressure 136 mm[Hg] Maryellen Strong MD Work Phone: [facility] 02-04-2024 14:36-0400 Body mass index (BMI) [Ratio] 34.82 kg/m2 Yenny Laila DO Work Phone: [facility] 02-04-2024 14:36-0400 Body weight 86.36 kg Yenny Laila DO Work Phone: [facility] 02-04-2024 14:36-0400 Diastolic blood pressure 70 mm[Hg] Yenny Laila DO Work Phone: [facility] 02-04-2024 14:36-0400 Systolic blood pressure 122 mm[Hg] Yenny Laila DO Work Phone: [facility] 10-02-2023 16:07-0400 Body height 160 cm Maryellen Strong MD Work Phone: [facility] 10-02-2023 16:07-0400 Body mass index (BMI) [Ratio] 34.37 kg/m2 Maryellen Strong MD Work Phone: [facility] 10-02-2023 16:07-0400 Body temperature 97.9 [degF] Maryellen Strong MD Work Phone: [facility] 10-02-2023 16:07-0400 Body weight 88 kg Maryellen Strong MD Work Phone: [facility] 10-02-2023 16:07-0400 Diastolic blood pressure 88 mm[Hg] Maryellen Strong MD Work Phone: [facility] 10-02-2023 16:07-0400 Heart rate 60 /min Maryellen Strong MD Work Phone: [facility] 10-02-2023 16:07-0400 Respiratory rate 16 /min Maryellen Strong MD Work Phone: [facility] 10-02-2023 16:07-0400 Systolic blood pressure 130 mm[Hg] Maryellen Strong MD Work Phone: [facility] 06-20-2023 14:38-0500 Body height 160 cm Maryellen Strong MD Work Phone: [facility] 06-20-2023 14:38-0500 Body mass index (BMI) [Ratio] 34.99 kg/m2 Maryellen Strong MD Work Phone: [facility] 06-20-2023 14:38-0500 Body temperature 97.11 [degF] Maryellen Strong MD Work Phone: [facility] 06-20-2023 14:38-0500 Body weight 89.58 kg Maryellen Strong MD Work Phone: [facility] 06-20-2023 14:38-0500 Diastolic blood pressure 80 mm[Hg] Maryellen Strong MD Work Phone: [facility] 06-20-2023 14:38-0500 Heart rate 80 /min Maryellen Strong MD Work Phone: [facility] 06-20-2023 14:38-0500 Respiratory rate 16 /min Maryellen Strong MD Work Phone: [facility] 06-20-2023 14:38-0500 Systolic blood pressure 130 mm[Hg] Maryellen Strong MD Work Phone: [email or web address] 07-04-2021 17:30-0400 Body height 157.48 cm Norma Rosa Other [employer] Other 07-04-2021 17:30-0400 Body mass index (BMI) [Ratio] 43.53 kg/m2 Norma Rosa Other [employer] Other 07-04-2021 17:30-0400 Body temperature 96.2 [degF] Norma Rosa Other [employer] Other 07-04-2021 17:30-0400 Body weight 107.96 kg Norma Rosa Other [employer] Other 07-04-2021 17:30-0400 Respiratory rate 18 /min Norma Rosa Other [employer] Other 07-04-2021 17:30-0400 SaO2% (BldA) [Mass fraction] 95 % Norma Rosa Other [employer] Other Encounters Encounter Date Encounter Type Care Provider Facility Start: 07-27-2024 End: 07-27-2024 Bamboo flowsheet Yenny Laila DO Work Phone: [facility] Start: 07-27-2024 End: 07-27-2024 Bamboo flowsheet Yenny Laila DO Work Phone: [facility] Start: 07-27-2024 End: 07-27-2024 Patient encounter procedure Yenny Laila DO Work Phone: [facility] Work Phone: Start: 07-27-2024 End: 07-27-2024 Periodic preventive med est patient 18-39 yrs Yenny Laila DO Work Phone: [facility] Comment on above: Well woman exam with routine gynecological exam; Menorrhagia with irregular cycle Start: 07-24-2024 End: 07-24-2024 Refill Maryellen Strong MD Work Phone: [facility] Start: 07-22-2024 End: 07-22-2024 [facility] Start: 07-15-2024 End: 07-15-2024 [facility] Start: 07-10-2024 End: 07-10-2024 [facility] Start: 07-01-2024 End: 07-01-2024 Orders Only Maryellen Strong MD Work Phone: [facility] Comment on above: Gitelman syndrome (P rimary Dx); Chronic fatigue Start: 06-29-2024 End: 06-29-2024 Refill Maryellen Strong MD Work Phone: [facility] Comment on above: Major depressive dis order, recurrent episode, moderate (CMS- HCC); Generalized anxiety disorder Start: 06-26-2024 End: 06-29-2024 Refill Maryellen Strong MD Work Phone: [facility] Comment on above: Major depressive dis order, recurrent episode, moderate (CMS- HCC); Generalized anxiety disorder Start: 06-12-2024 End: 06-12-2024 [facility] Start: 06-03-2024 End: 06-03-2024 [facility] Start: 05-29-2024 End: 05-29-2024 [facility] Start: 05-01-2024 End: 05-01-2024 [facility] Start: 04-03-2024 End: 04-03-2024 [facility] Start: 03-05-2024 End: 03-05-2024 [facility] Start: 03-02-2024 End: 03-03-2024 Refill Maryellen Strong MD Work Phone: [facility] Comment on above: Major depressive dis order, recurrent episode, moderate (CMS- HCC); Generalized anxiety disorder Start: 02-21-2024 End: 02-21-2024 ambulatory LETICIA PACHECO [facility] Start: 02-17-2024 End: 02-17-2024 Bamboo flowsheet Yenny Laila DO Work Phone: [facility] Start: 02-17-2024 End: 02-17-2024 Bamboo flowsheet Yenny Laila DO Work Phone: [facility] Start: 02-17-2024 End: 02-17-2024 Office outpatient visit 15 minutes Yenny Laila DO Work Phone: [facility] Comment on above: Pre-op examination; Request for sterilization Start: 02-17-2024 End: 02-17-2024 Preprocedural examination done Yenny Laila DO Work Phone: [facility] Start: 02-17-2024 End: 02-17-2024 ambulatory YENNY LAILA Not Available Start: 02-10-2024 End: 02-10-2024 Office outpatient visit 25 minutes Maryellen Strogn MD Work Phone: [facility] Comment on above: Gitelman syndrome (P rimary Dx); Acute sinusitis, recurrence not specified, unspecified location Start: 02-10-2024 End: 02-10-2024 ambulatory MARYELLEN STRONG [facility] Start: 02-04-2024 End: 02-04-2024 Office outpatient visit 15 minutes Yenny Laila DO Work Phone: [facility] Comment on above: control counse ling; Abnormal uterine bleeding (AUB); Request for sterilization Start: 02-04-2024 End: 02-04-2024 Bamboo flowsheet Yenny Laila DO Work Phone: [facility] Start: 02-04-2024 End: 02-04-2024 Bamboo flowsheet Yenny Ulloa DO Work Phone: [facility] Start: 02-04-2024 End: 02-04-2024 ambulatory YENNY MKCEONO Not Available Start: 01-30-2024 End: 01-30-2024 [facility] Start: 01-23-2024 End: 01-23-2024 ambulatory [facility] Start: 01-10-2024 End: 01-10-2024 ambulatory [facility] Start: 12-27-2023 End: 12-27-2023 ambulatory [facility] Start: 12-17-2023 End: 12-17-2023 Refill Marley Benjamin LPN [facility] Start: 12-17-2023 End: 12-17-2023 Refill Maryellen Strong MD Work Phone: [facility] Start: 12-02-2023 End: 12-02-2023 ambulatory [facility] Start: 11-18-2023 End: 11-18-2023 [facility] Start: 11-18-2023 Encounter for genera l adult medical examination without abnormal findings [facility] Start: 10-31-2023 End: 10-31-2023 Telephone encounter Maryellen Strong MD Work Phone: [facility] Start: 10-28-2023 End: 10-28-2023 ambulatory MARYELLEN STRONG [facility] Start: 10-10-2023 End: 10-10-2023 Orders Only Maryellen Strong MD Work Phone: [facility] Comment on above: Renal mass (Primary Dx); Cyst of right kidney Start: 10-08-2023 End: 10-08-2023 Orders Only Maryellen Strong MD Work Phone: [facility] Start: 10-07-2023 End: 10-09-2023 Telephone encounter Marley Benjamin LPN [facility] Comment on above: Med Refill Start: 10-07-2023 End: 10-07-2023 ambulatory [facility] Start: 10-02-2023 End: 10-02-2023 Office outpatient visit 15 minutes Maryellen Strong MD Work Phone: [facility] Comment on above: RUQ abdominal pain ( Primary Dx); Gitelman syndrome Start: 10-02-2023 End: 10-02-2023 ambulatory [facility] Start: 08-21-2023 End: 08-21-2023 Orders Only Maryellen Strong MD Work Phone: [facility] Comment on above: Gitelman syndrome (P rimary Dx) Start: 07-29-2023 End: 07-29-2023 [facility] Start: [facility]-03-[facility] Start: 07-01-2023 Refill Maryellen kothari MD Work Phone: [facility] Start: 06-20-2023 End: 06-20-2023 Patient encounter status Maryellen Strong MD Work Phone: [facility] Start: 06-20-2023 End: 06-20-2023 Periodic preventive med est patient 18-39 yrs Maryellen Strong MD Work Phone: [facility] Comment on above: BMI 34.0-34.9,adult (Primary Dx); Routine general medical examination at a health care facility Start: 06-20-2023 End: 06-20-2023 ambulatory MARYELLEN [facility] Start: 06-20-2023 Encounter for genera l adult medical examination without abnormal findings [facility] Start: 06-18-2023 Refill Maryellen kothari MD Work Phone: [facility] Start: 05-16-2023 Refill Maryellen kothari MD Work Phone: [facility] Start: 04-24-2023 End: 04-24-2023 ambulatory YENNY ULLOA Not Available Start: 04-10-2023 Refill Maryellen kothari MD Work Phone: [facility] Start: 03-18-2023 End: 03-18-2023 ambulatory YENNY ULLOA Not Available Start: 03-12-2022 End: 03-12-[address] YENNY ULLOA Facility: Start: 07-04-2021 (URG) Urgent Care Visit Norma Diana caputo [facility] Start: 07-04-2021 End: 07-04-2021 ambulatory Norma Shelley Other [employer] Other Procedures Date Procedure Procedure Detail Performing Clinician Start: 02-10-2024 Adult depression screening assessment Maryellen Strong MD Work Phone: Start: 10-02-2023 Adult depression screening assessment Maryellen Strong MD Work Phone: Start: 06-20-2023 Adult depression screening assessment Maryellen Strong MD Work Phone: Start: 02-27-2023 Adult depression screening assessment Maryellen Strong MD Work Phone: Start: 03-12-2022 Microscopic observation [Identifier] in Cervix by Cyto stain Maryellen Strong MD Work Phone: Start: 07-16-2017 H/O: surgery S/P nasal septoplasty Maryellen Strong MD Work Phone: Start: 07-16-2017 History of tonsillectomy S/P tonsillectomy Maryellen Strong MD Work Phone: Plan of Treatment Date Care Activity Detail Author Start: 03-18-2028 Screening for malign ant neoplasm of cervix [facility] Start: 08-02-2025 End: 08-02-2025 Patient encounter procedure 08/02/2025 2:00 PM EDT Office Visit [facility] [address] [place] [id number] Yenny Ulloa, [address] [place] [address] [facility] Start: 03-12-2025 Screening for malign ant neoplasm of cervix [facility] Start: 02-09-2025 Adult BMI Screening Adult BMI Screen ing [facility] Start: 02-09-2025 Depression Screening Depression Scre ening [facility] Start: 02-09-2025 Tobacco Screening Tobacco Screening [facility] Start: 12-14-2024 Influenza vaccination P [facility] Start: 10-27-2024 Adult BMI Screening Adult BMI Screen ing [facility] Start: 10-01-2024 Adult BMI Screening Adult BMI Screen ing [facility] Start: 10-01-2024 Depression Screening Depression Scre ening [facility] Start: 10-01-2024 Tobacco Screening Tobacco Screening [facility] Start: 07-28-2024 End: 07-28-2024 Patient encounter procedure [facility] Start: 07-27-2024 End: 07-27-2024 Patient encounter procedure [facility] Comment on above: Arrived Start: 07-21-2024 Tobacco Screening Tobacco Screening [facility] Start: 07-01-2024 End: 07-01-2025 CBC W Auto Differential panel - Blood CBC auto differential Lab Routine Gitelman syndrome Chronic fatigue Expected: 07/01/2024, Expires: 07/01/2025 [employer] Phone: Comment on above: Expected: 07/01/2024 , Expires: 07/01/2025 Start: 07-01-2024 End: 07-01-2025 Comprehensive metabolic 2000 panel - Serum or Plasma Comprehensive metabolic panel Lab Routine Gitelman syndrome Chronic fatigue Expected: 07/01/2024, Expires: 07[facility]01/2025 [facility] Comment on above: Expected: 07/01/2024 , Expires: 07/01/2025 Start: 07-01-2024 End: 07-01-2025 Iron and TIBC Iron and TIBC Lab Routine Gitelman syndrome Chronic fatigue Expected: 07/01/2024, Expires: 07/01/2025 [facility] Comment on above: Expected: 07/01/2024 , Expires: 07/01/2025 Start: 07-01-2024 End: 07-01-2025 Lipid 1996 panel - Serum or Plasma Lipid profile Lab Routine Gitelman syndrome Chronic fatigue Expected: 07/01/2024, Expires: 07/01/2025 [facility] Comment on above: Expected: 07/01/2024 , Expires: 07/01/2025 Start: 07-01-2024 End: 07-01-2025 Magnesium [Mass/volume] in Serum or Plasma Magnesium Lab Routine Gitelman syndrome Chronic fatigue Expected: 07/01/2024, Expires: 07/01/2025 [facility] Comment on above: Expected: 07/01/2024 , Expires: 07/01/2025 Start: 07-01-2024 End: 07-01-2025 Thyroid profile includes TSH FT4 Thyroid profile includes TSH FT4 Lab Routine Gitelman syndrome Chronic fatigue Expected: 07/01/2024, Expires: 07/01/2025 [facility] Comment on above: Expected: 07/01/2024 , Expires: 07/01/2025 Start: 06-19-2024 Adult BMI Screening Adult BMI Screen ing [facility] Start: 06-19-2024 Depression Screening Depression Scre [facility] Start: 06-19-2024 Tobacco Screening [facility] [facility] Start: 05-30-2024 Tobacco Screening Tobacco Screening [facility] Start: 04-18-2024 Tobacco Screening Tobacco Screening [facility] Start: 02-28-2024 Adult BMI Screening Adult BMI Screen [facility] Start: 02-28-2024 Depression Screening Depression Scre [facility] Start: 02-28-2024 Tobacco Screening Tobacco Screening [facility] Start: 02-17-2024 End: 02-17-2024 Patient encounter procedure [facility] Comment on above: Arrived Start: 02-04-2024 End: 02-04-2024 Patient encounter procedure 02/04/2024 2:20 PM EDT Office Visit [facility] [address] [place] [id number] Yenny Ulloa, [address] [place] [address] Arrived [facility] Comment on above: Arrived Start: 02-04-2024 End: 02-03-2025 US for US PELVIS-TRANSVAG IF INDICATED Imaging Routine Abnormal uterine bleeding (AUB) Expected: 02/04/2024 (Approximate), Expires: 02/03/2025 [facility] Work Phone: Comment on above: Expected: 02/04/2024 (Approximate), Expires: 02/03/2025 Start: 12-15-2023 COVID-19 Vaccine ( season) COVID-19 Vaccine ( season) [facility] Start: 12-15-2023 COVID-19 Vaccine ( season) COVID-19 Vaccine ( season) [facility] Start: 12-15-2023 Influenza vaccination [facility] Start: 10-10-2023 End: 10-09-2024 MR Abdomen W contrast IV MR abdomen with contrast Imaging Routine Renal mass Cyst of right kidney Expected: 10/10/2023, Expires: 10/09/2024 [facility] Work Phone: Comment on above: Expected: 10/10/2023 , Expires: 10/09/2024 Start: 10-08-2023 End: 10-07-2024 Iron and TIBC Iron and TIBC Lab Routine Chronic fatigue Gitelman syndrome Expected: 10/08/2023, Expires: 10/07/2024 [facility] Work Phone: Comment on above: Expected: 10/08/2023 , Expires: 10/07/2024 Start: 10-02-2023 End: 10-01-2024 CBC W Auto Differential panel - Blood CBC auto differential Lab Routine RUQ abdominal pain Gitelman syndrome Expected: 10/02/2023, Expires: 10[facility]01/20[facility]: Expected: 10/02/2023 , Expires: 10/01/2024 Start: 10-02-2023 End: 10-01-2024 Comprehensive metabolic 2000 panel - Serum or Plasma Comprehensive metabolic panel Lab Routine RUQ abdominal pain Gitelman syndrome Expected: 10/02/2023, Expires: 10/01/2024 [facility] Comment on above: Expected: 10/02/2023 , Expires: 10/01/2024 Start: 10-02-2023 End: 10-01-2024 Magnesium [Mass/volume] in Serum or Plasma Magnesium Lab Routine RUQ abdominal pain Gitelman syndrome Expected: 10/02/2023, Expires: 10/01/2024 [facility] [employer] [facility] Comment on above: Expected: 10/02/2023 , Expires: 10/01/2024 Start: 10-02-2023 End: 10-01-2024 US Abdomen limited Ultrasound abdomen limited Imaging Routine RUQ abdominal pain Expected: 10/02/2023, Expires: 10/01/2024 [facility] Work Phone: Comment on above: Expected: 10/02/2023 , Expires: 10/01/2024 Start: 08-21-2023 End: 08-20-2024 US Abdomen limited Ultrasound abdomen limited Imaging Routine Gitelman syndrome Expected: 08/21/2023, Expires: 08/20/2024 [facility] Work Phone: Comment on above: Expected: 08/21/2023 , Expires: 08/20/2024 Start: 08-19-2023 End: 08-19-2023 Clinical Support 08/19/2023 2:30 PM EDT Clinical Support [facility] [address] [place] [address] [facility] Start: 06-20-2023 End: 06-20-2023 Patient encounter procedure 06/20/2023 2:30 PM EST Office Visit [facility] [address] [place] [address] Maryellen Strong MD [address] [place] [address] [facility] Start: 06-20-2023 End: 06-19-2024 CBC W Auto Differential panel - Blood CBC auto differential Lab Routine Routine general medical examination at a health care facility Expected: 06/20/2023, Expires: 06/19/2024 [facility] Comment on above: Expected: 06/20/2023 , Expires: 06/19/2024 Start: 06-20-2023 End: 06-19-2024 Comprehensive metabolic 2000 panel - Serum or Plasma Comprehensive metabolic panel Lab Routine Routine general medical examination at a health care facility Expected: 06/20/2023, Expires: 06/19/2024 [facility] Comment on above: Expected: 06/20/2023 , Expires: 06/19/2024 Start: 06-20-2023 End: 06-19-2024 Lipid 1996 panel - Serum or Plasma Lipid profile Lab Routine Routine general medical examination at a health care facility Expected: 06/20/2023, Expires: 06/19/2024 [facility] Work Phone: Comment on above: Expected: 06/20/2023 , Expires: 06/19/2024 Start: 12-14-2022 COVID-19 Vaccine ( season) COVID-19 Vaccine ( season) [facility] Start: 12-14-2022 Influenza vaccination Influenza Vacc ine [facility] Start: 2004 DTaP,Tdap and Td Vaccines (1 - Tdap) DTaP,Tdap and Td Vaccines (1 - Tdap) [facility] Start: 2003 Adult BMI Follow Up Plan Adult BMI Follow Up Plan [facility] Cytology Cervical or vaginal smear or scraping study Pap Smear Pathology and Cytology Routine Well woman exam with routine gynecological exam Ordered: 07/27/2024 [facility] [employer], Work Phone: Comment on above: Ordered: 07/27/2024 End: 08-20-2024 Hepatic function 2000 panel - Serum or Plasma Hepatic function panel Lab Routine Gitelman syndrome 1 Occurrences starting 08/21/2023 until 08/20/2024 [facility] Comment on above: 1 Occurrences starti ng 08/21/2023 until 08/20/2024 Human papilloma viru s DNA [Presence] in Unspecified specimen by Probe with amplification HPV DNA probe, amplified Microbiology Routine Well woman exam with routine gynecological exam Ordered: 07/27/2024 [facility] Comment on above: Ordered: 07/27/2024 Immunizations Immunization Date Immunization Notes Care Provider Frances dixon 01-06-2022 Covid-19, Mrna, Lnp- s, Bivalent, Pf, 50mcg/0.5ml or 25mcg/0.25ml Maryellen Strong MD Work Phone: [facility] 01-06-2022 COVID-19, mRNA, LNP- S, PF, 100mcg/0.5mL Dose Maryellen Strong MD Work Phone: [facility] 12-20-2021 Seasonal, quadrivale nt, recombinant, injectable influenza vaccine, preservative free Maryellen Strong MD Work Phone: [facility] 12-20-2021 influenza virus vaccine, unspecified formulation Maryellen Strong MD Work Phone: [facility] 01-10-2021 influenza, injectabl e, quadrivalent, preservative free Maryellen Strong MD Work Phone: [facility] 09-07-2020 COVID-19, mRNA, LNP- S, PF, 100mcg/0.5mL Dose Maryellen Strong MD Work Phone: [facility] 08-10-2020 COVID-19, mRNA, LNP- S, PF, 100mcg/0.5mL Dose Maryellen Strong MD Work Phone: [facility] 12-23-2019 influenza, injectabl e, quadrivalent, preservative free Maryellen Strong MD Work Phone: [facility] 12-02-2018 influenza, injectabl e, quadrivalent, preservative free Maryellen Strong MD Work Phone: [facility] 12-02-2017 influenza, injectabl e, quadrivalent, preservative free Maryellen Strong MD Work Phone: [facility] 02-19-2017 influenza, injectabl e, quadrivalent, preservative free [facility]ellen Strong MD [facility] 02-19-2017 influenza, seasonal, injectable Maryellen Strong MD Work Phone: [facility] Payers Date Payer Category Payer Private Health Insurance [id number] 2023 Managed Care, Other (non HMO) [id number] 2023 Private Health Insurance [id number] 2023 Private Health Insurance [id number] 2023 Unknown [id number] 2020 Unknown [employer] [id number] 2020-Present [phone] [address] [place] [address] [id number] 1985 Unknown [id number] 2.16.840.1.091008.3.579.2 .593 1985 Unknown [id number] 2.16.840.1.018906.3.579.2 .1286 1985 Unknown [id number] 2.16.840.1.207576.3.579.2 .1286 1985 Unknown [id number] 2.16.840.1.014020.3.579.2 .1286 1985 Unknown [id number] 2.16.840.1.863930.3.579.2 .1259 1985 Unknown [id number] 2.16.840.1.953595.3.579.2 .1259 1985 Unknown [id number] 2.16.840.1.704648.3.579.2 .1259 1985 Unknown [id number] 2.16840.1.567454.3.579.2 .1259 1985 Unknown [id number] 2.16840.1.088046.3.579.2 .1285 1985 Unknown [id number] 2.16.840.1.569527.3.579.2 .1285 1985 Unknown [id number] 2.840.1.790133.3.579.2 .1285 1985 Unknown [id number] 2.840.1.232147.3.579.2 .1285 1985 Unknown [id number] .840.1.095062.3.579.2 .1285 1985 Unknown [id number] 2.840.1.038089.3.579.2 .1285 1985 Unknown [id number] .840.1.619801.3.579.2 .1285 1985 Unknown [id number] 2.840.1.817125.3.579.2 .1285 1985 Unknown [id number] .840.1.346187.3.579.2 .1285 1985 Unknown [id number] 2.840.1.554932.3.579.2 .1285 1985 Unknown [id number] .840.1.332711.3.579.2 .1285 1985 Unknown [id number] .840.1.981797.3.579.2 .1285 1985 Unknown [id number] .840.1.690319.3.579.2 .1285 1985 Unknown [id number] 2.840.1.116698.3.579.2 .1285 1985 Unknown [id number] 2.16840.1.215422.3.579.2 .1286 1985 Unknown [id number] 2.16.840.1.906236.3.579.2 .1286 1985 Unknown [id number] 2.16.840.1.994321.3.579.2 .1286 1985 Unknown [id number] 2.16.840.1.290506.3.579.2 .1286 1985 Unknown [id number] 2.16.840.1.454296.3.579.2 .1286 1959 Unknown [id number] 2.16.840.1.323721.19 Social History Date Type Detail Facility Unknown if ever smoked [employer] Other Start: 04-19-2022 End: 03-06-2023 Sex Assigned At [facility] Start: 12-14-2021 End: 03-06-2023 Tobacco smoking status TXIS Ex-smoker [facility] End: 04-15-2015 History of tobacco use Current smoker [facility] End: 04-15-2015 History of tobacco use Cigarette Smoker [facility] Start: 04-24-2023 End: 02-10-2024 Alcoholic beverage intake Ex-drinker (finding) [facility] Start: 04-19-2022 End: 03-06-2023 History of Social function [facility] Start: 03-06-2023 Alcohol Comment Occasional alcohol use ; caffeine: 1-2 cups per day [facility] Start: 1985 Sex assigned at Not on file [facility] Start: 12-14-2021 Tobacco use and exposure Smokeless tobacco non-user [facility] Do you belong to any clubs or organizations such as cheondoism groups, unions, fraternal or athletic groups, or school groups? No [facility] Are you now , , , , never or living with a partner? [facility] How often to you hav e a drink containing alcohol? 2-3 time sa week [facility] How many standard dr inks containing alcohol do you have on a typical day? 1 or 2 [facility] How often do you hav e 6 or more drinks on 1 occasion? Less than monthly [facility] How hard is it for y ou to pay for the very basics like food, housing, medical care, and heating Not very hard [facility] Adolescent depressio n screening assessment 14 [facility] Do you feel stress - tense, restless, nervous, or anxious, or unable to sleep at night because your mind is troubled all the time - these days [OSQ] Only a little [facility] Start: 09-04-2020 Education 15 [facility] tem Start: 02-27-2023 Alcohol Comment sober since 09/21/22 [facility] tem Start: 1985 Sex Assigned At Female [facility] Start: 02-11-2020 Gender identity Identifies as female gender (finding) [facility] Start: 02-11-2020 Sexual orientation Heterosexual (finding) [facility] Start: 11-18-2014 Sex Female (finding) [facility] Clinical Notes 07-04-2021 to 07-27-2024 Venita Moreno, VIVIANA - 07/27/2024 2:00 PM EDTTelephone Encounter - Marley Benjamin LPN - 03/02/2024 11:05 PM ESTTelephone Encounter - Marley Benjamin CABLE ASSEMBLER - 03/02/2024 11:05 PM EST Note Date & Type Note Facility 07-27-2024 History of Presen t illness Narrative Reason for Appointment: Patient ID: Myah Carpenter is a 39 y.o. female who presents for [facility] Women Visit Patient presents today for Annual Exam. MEDICATIONS Current Outpatient Medications Medication Instructions ascorbic acid (VITAMIN C) 1,000 mg, Oral, Daily RT bisacodyl (DULCOLAX) 5 mg, Oral, Every 24 hours buPROPion SR (WELLBUTRIN SR) 100 mg, Oral, Daily RT busPIRone (BUSPAR) 15 mg, Oral, 3 times daily magnesium 200 mg, Oral, Every 24 hours metFORMIN XR (Glucophage-XR) 500 MG 24 hr tablet TAKE TWO TABLETS BY MOUTH EVERY EVENING. TAKE WITH MEALS. DO NOT CRUSH, CHEW , OR SPLIT metoprolol tartrate (LOPRESSOR) 25 mg, Oral, Once ondansetron (ZOFRAN) 4 mg, Oral, Every 6 hours PRN potassium chloride (Klor-Con) 20 MEQ packet 20 mEq, Oral, Every 24 hours traZODone (DESYREL) 200 mg, Oral, Nightly ALLERGIES No Known Allergies PROBLEMS Active Ambulatory Problems Diagnosis Date Noted No Active Ambulatory Problems Resolved Ambulatory Problems Diagnosis Date Noted No Resolved Ambulatory Problems Past Medical History: Diagnosis Date Abdominal pain Anxiety disorder Benign essential HTN (CMS/HCC) Depression (CMS/HCC) Discharge from the vagina GERD (gastroesophageal reflux disease) Hormone disorder Hypokalemia IBS (irritable bowel syndrome) Migraines (CMS/HCC) Morbid obesity with BMI of 40.0-44.9, adult ([facility]) HISTORY PAST MEDICAL HISTORY SOCIAL HISTORY Past Medical History: Diagnosis Date Abdominal pain Anxiety disorder Benign essential HTN (CMS/HCC) Depression (CMS/HCC) Discharge from the vagina GERD (gastroesophageal reflux disease) Hormone disorder Hypokalemia IBS (irritable bowel syndrome) Migraines ([facility]/HCC) Morbid obesity with BMI of 40.0-44.9, adult ([facility]) Social History Tobacco Use Smoking status: Former Current packs/day: 0.00 Types: Cigarettes Quit date: 2016 Years since quittin.2 Smokeless tobacco: Not on file Substance Use Topics Alcohol use: Not Currently Comment: Occasional alcohol use ; caffeine: 1-2 cups per day Drug use: Yes Types: Marijuana FAMILY HISTORY Family History Problem Relation Name Age of Onset Depression Mother Diabetes Mother Hypertension Mother Heart disease Father Hypertension Maternal Grandmother Esophageal cancer Maternal Grandfather Heart disease Paternal Grandmother Lung cancer Paternal Grandfather SURGICAL HISTORY Past Surgical History: Procedure Laterality Date CHOLECYSTECTOMY 2011 COLONOSCOPY 10/2019 SEPTOPLASTY 06/2017 TONSILLECTOMY 06/2017 REVIEW OF SYSTEMS Review of Systems: Review of Systems Constitutional: Negative. HENT: Negative. Eyes: Negative. Respiratory: Negative. Cardiovascular: Negative. Gastrointestinal: Negative. Genitourinary: Negative. Musculoskeletal: Negative. Skin: Negative. Neurological: Negative. All other systems reviewed and are negative. Hematological: Negative. Endocrine: Negative. Allergic/Immunologic: Negative. OBJECTIVE Objective: Physical Exam Constitutional: Appearance: Normal appearance. She is well-developed. Genitourinary: Vulva normal. Breasts: Breasts are soft. Right: Normal. Left: Normal. Cardiovascular: Rate and Rhythm: Normal rate and regular rhythm. Pulmonary: Effort: Pulmonary effort is normal. Breath sounds: Normal breath sounds. Abdominal: General: Bowel sounds are normal. There is no distension. Palpations: Abdomen is soft. Tenderness: There is no abdominal tenderness. There is no guarding or rebound. Musculoskeletal: General: No swelling. Normal range of motion. Right lower leg: No edema. Left lower leg: No edema. Neurological: Mental Status: She is alert and oriented to person, place, and time. Skin: General: Skin is warm and dry. Psychiatric: Mood and Affect: Mood normal. Behavior: Behavior normal. Vitals and nursing note reviewed. Exam conducted with a clinical physician assistant present. Vitals: Estimated body mass index is 33.13 kg/m as calculated from the following: Height as of 07/10/22: 5' 2 . Weight as of this encounter: 181 lb 1.9 oz. BP: 118/74 No LMP recorded. ASSESSMENT & PLAN ICD-10-CM 1. Well woman exam with routine gynecological exam Z01.419 Pap Smear HPV DNA probe, amplified Annual Exam: Patient presents today for an annual exam. Patient states she is doing well and has complaints of vaginal bleeding after intercourse, which lead into her cycle that was a week early. Patient to monitor and will reach out if US is needed. Pap was obtained without difficulty. Discussed ParaGard IUD as patient previously stopped OCP due to liver issues. Discussed bilateral salpingectomy & endometrial ablation. Orders Placed This Encounter Procedures HPV DNA probe, amplified Follow Up: Patient is to return in one year for annual unless needed otherwise. Documented by Venita Moreno LPN on behalf of: Yenny Ulloa DO documented in this encounter [facility] 03-02-2024 Miscellaneous Notes Patient via [employer] requesting refill of Buspirone to [facility] documented in this encounter [facility] 03-02-2024 Telephone encounter Note Patient via [employer] requesting refill of Buspirone to [facility] 02-17-2024 History of Presen t illness Narrative Reason for Appointment: Patient ID: Myah Carpenter is a 38 y.o. female who presents for Pre-op Visit Patient presents today for Pre Op appointment. Patient is scheduled to undergo [facility] assisted Bilateral Laparoscopic Salpingectomy on 03/03/[address] Ulloa at [facility]. MEDICATIONS Current Outpatient Medications Medication Instructions ascorbic acid (VITAMIN C) 1,000 mg, Oral, Daily RT bisacodyl (DULCOLAX) 5 mg, Oral, Every 24 hours buPROPion SR (WELLBUTRIN SR) 100 mg, Oral, Daily RT busPIRone (BUSPAR) 15 mg, Oral, 3 times daily levonorgestrel-ethinyl estradiol (Lessina) 0.1-20 MG-MCG tablet 1 tablet, Oral, Daily magnesium 200 mg, Oral, Every 24 hours metFORMIN XR (GLUCOPHAGE-XR) 1,000 mg, Oral, Daily with evening meal, Do not crush, chew, or split. metoprolol tartrate (LOPRESSOR) 25 mg, Oral, Once ondansetron (ZOFRAN) 4 mg, Oral, Every 6 hours PRN potassium chloride (Klor-Con) 20 MEQ packet 20 mEq, Oral, Every 24 hours tiZANidine (ZANAFLEX) 2 mg, Oral, Every 6 hours PRN traZODone (DESYREL) 200 mg, Oral, Nightly ALLERGIES No Known Allergies PROBLEMS Active Ambulatory Problems Diagnosis Date Noted No Active Ambulatory Problems Resolved Ambulatory Problems Diagnosis Date Noted No Resolved Ambulatory Problems Past Medical History: Diagnosis Date Abdominal pain Anxiety disorder Benign essential HTN (CMS/HCC) Depression (CMS/HCC) Discharge from the vagina GERD (gastroesophageal reflux disease) Hormone disorder Hypokalemia IBS (irritable bowel syndrome) Migraines (CMS/HCC) Morbid obesity with BMI of 40.0-44.9, adult (CMS/HCC) HISTORY PAST MEDICAL HISTORY SOCIAL HISTORY Past Medical History: Diagnosis Date Abdominal pain Anxiety disorder Benign essential HTN (CMS/HCC) Depression (CMS/HCC) Discharge from the vagina GERD (gastroesophageal reflux disease) Hormone disorder Hypokalemia IBS (irritable bowel syndrome) Migraines (CMS/HCC) Morbid obesity with BMI of 40.0-44.9, adult (CMS/HCC) Social History Tobacco Use Smoking status: Former Current packs/day: 0.00 Types: Cigarettes Quit date: 2015 Years since quittin.8 Smokeless tobacco: Not on file Substance Use Topics Alcohol use: Not Currently Comment: Occasional alcohol use ; caffeine: 1-2 cups per day Drug use: Yes Types: Marijuana FAMILY HISTORY Family History Problem Relation Name Age of Onset Depression Mother Diabetes Mother Hypertension Mother Heart disease Father Hypertension Maternal Grandmother Esophageal cancer Maternal Grandfather Heart disease Paternal Grandmother Lung cancer Paternal Grandfather SURGICAL HISTORY Past Surgical History: Procedure Laterality Date CHOLECYSTECTOMY 2011 COLONOSCOPY 10/2019 SEPTOPLASTY 06/2017 TONSILLECTOMY 06/2017 REVIEW OF SYSTEMS Review of Systems: Review of Systems Constitutional: Negative. HENT: Negative. Eyes: Negative. Respiratory: Negative. Cardiovascular: Negative. Gastrointestinal: Negative. Genitourinary: Negative. Musculoskeletal: Negative. Skin: Negative. Neurological: Negative. All other systems reviewed and are negative. Hematological: Negative. Endocrine: Negative. Allergic/Immunologic: Negative. OBJECTIVE Objective: Physical Exam Constitutional: Appearance: Normal appearance. She is well-developed. Cardiovascular: Rate and Rhythm: Normal rate and regular rhythm. Pulmonary: Effort: Pulmonary effort is normal. Breath sounds: Normal breath sounds. Abdominal: General: Bowel sounds are normal. There is no distension. Palpations: Abdomen is soft. Tenderness: There is no abdominal tenderness. There is no guarding or rebound. Musculoskeletal: General: No swelling. Normal range of motion. Right lower leg: No edema. Left lower leg: No edema. Neurological: Mental Status: She is alert and oriented to person, place, and time. Skin: General: Skin is warm and dry. Psychiatric: Mood and Affect: Mood normal. Behavior: Behavior normal. Vitals and nursing note reviewed. Exam conducted with a clinical physician assistant present. Vitals: Estimated body mass index is 34.82 kg/m as calculated from the following: Height as of 07/10/22: 5' 2 . Weight as of 02/04/24: 190 lb 6.4 oz. BP: No LMP recorded. ASSESSMENT & PLAN ICD-10-CM 1. Pre-op examination Z01.818 2. Request for sterilization Z30.2 Pre Op: Patient is doing well but has desire for sterilization. I have discussed conservative management vs. surgical management with the patient in detail and patient desires surgical management at this time. Patient has voiced understanding that a Bilateral Salpingectomy is considered to be permanent and patient will undergo [facility] assisted Bilateral Laparoscopic Salpingectomy on 03/03/2024. Surgical consents were signed, mmc was reviewed, and patient is to proceed to [facility] OR. -*-Advised patient that her BP was elevated today and patient voiced that she has not yet taken her BP meds today. Patients PCP is Dr. Strong Follow Up: Patient is to follow up between 1-2 weeks post op to assess proper healing and recovery from procedure. Documented by Venita Moreno LPN on behalf of: Yenny Ulloa DO documented in this encounter [facility] 02-10-2024 History of Presen t illness Narrative Images from the original note were not included. [id number] [facility] [id number] SUBJECTIVE: Patient ID: Myah Carpenter is a 38 y.o. female. 38 yo WF withx 1-2 weeks congestion and green drainage, no fever The following portions of the patient's history were reviewed and updated as appropriate: allergies, current medications, past family history, past medical history, past social history, past surgical history and problem list. REVIEW OF SYSTEMS: Review of Systems HENT: Positive for congestion. Respiratory: Positive for cough. PHYSICAL EXAMINATION: Vitals: 02/10/24 1350 BP: 136/90 BP Site: Left Arm BP Postition: Sitting BP CUFF SIZE: M (9-13 inches) Pulse: 80 Resp: 16 Temp: 36.2 C (97.2 F) TempSrc: Tympanic Weight: 85.7 kg (189 lb) Height: 160 cm (5' 3 ) Physical Exam Vitals and nursing note reviewed. Constitutional: Appearance: Normal appearance. HENT: Head: Normocephalic and atraumatic. Nose: Congestion and rhinorrhea present. Eyes: Extraocular Movements: Extraocular movements intact. Pupils: Pupils are equal, round, and reactive to light. Cardiovascular: Rate and Rhythm: Normal rate and regular rhythm. Pulses: Normal pulses. Heart sounds: Normal heart sounds. Pulmonary: Effort: Pulmonary effort is normal. Breath sounds: Normal breath sounds. Skin: General: Skin is warm and dry. Neurological: General: No focal deficit present. Mental Status: She is alert and oriented to person, place, and time. Psychiatric: Mood and Affect: Mood normal. Behavior: Behavior normal. ASSESSMENT/PLAN: Myah was seen today for sinus problem. 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 - azithromycin (ZITHROMAX) 250 mg tablet; Take 1 tablet (250 mg total) by mouth in the morning for 12 days. Take 2 tablets the first day, then 1 tablet daily for 4 days.. Follow-up: Zithromax Pt is congratulated on 17months sober and 50# plus weight loss documented in this encounter [facility] just[facility] 02-04-2024 History of Presen t illness Narrative Reason for Appointment: Patient ID: Myah Carpenter is a 38 y.o. female who presents for Contraception Patient presents today for Acute Visit. MEDICATIONS Current Outpatient Medications Medication Instructions ascorbic acid (VITAMIN C) 1,000 mg, Oral, Daily RT bisacodyl (DULCOLAX) 5 mg, Oral, Every 24 hours buPROPion SR (WELLBUTRIN SR) 100 mg, Oral, Daily RT busPIRone (BUSPAR) 15 mg, Oral, 3 times daily levonorgestrel-ethinyl estradiol (Lessina) 0.1-20 MG-MCG tablet 1 tablet, Oral, Daily magnesium 200 mg, Oral, Every 24 hours metFORMIN XR (GLUCOPHAGE-XR) 1,000 mg, Oral, Daily with evening meal, Do not crush, chew, or split. metoprolol tartrate (LOPRESSOR) 25 mg, Oral, Once ondansetron (ZOFRAN) 4 mg, Oral, Every 6 hours PRN potassium chloride (Klor-Con) 20 MEQ packet 20 mEq, Oral, Every 24 hours tiZANidine (ZANAFLEX) 2 mg, Oral, Every 6 hours PRN traZODone (DESYREL) 200 mg, Oral, Nightly ALLERGIES No Known Allergies PROBLEMS Active Ambulatory Problems Diagnosis Date Noted No Active Ambulatory Problems Resolved Ambulatory Problems Diagnosis Date Noted No Resolved Ambulatory Problems Past Medical History: Diagnosis Date Abdominal pain Anxiety disorder Benign essential HTN (CMS/HCC) Depression (CMS/HCC) Discharge from the vagina GERD (gastroesophageal reflux disease) Hormone disorder Hypokalemia IBS (irritable bowel syndrome) Migraines (CMS/HCC) Morbid obesity with BMI of 40.0-44.9, adult ([facility]) HISTORY PAST MEDICAL HISTORY SOCIAL HISTORY Past Medical History: Diagnosis Date Abdominal pain Anxiety disorder Benign essential HTN (CMS/HCC) Depression (CMS/HCC) Discharge from the vagina GERD (gastroesophageal reflux disease) Hormone disorder Hypokalemia IBS (irritable bowel syndrome) Migraines (CMS/HCC) Morbid obesity with BMI of 40.0-44.9, adult ([facility]) Social History Tobacco Use Smoking status: Former Current packs/day: 0.00 Types: Cigarettes Quit date: 2015 Years since quittin.8 Smokeless tobacco: Not on file Substance Use Topics Alcohol use: Not Currently Comment: Occasional alcohol use ; caffeine: 1-2 cups per day Drug use: Yes Types: Marijuana FAMILY HISTORY Family History Problem Relation Name Age of Onset Depression Mother Diabetes Mother Hypertension Mother Heart disease Father Hypertension Maternal Grandmother Esophageal cancer Maternal Grandfather Heart disease Paternal Grandmother Lung cancer Paternal Grandfather SURGICAL HISTORY Past Surgical History: Procedure Laterality Date CHOLECYSTECTOMY 2011 COLONOSCOPY 10/2019 SEPTOPLASTY 06/2017 TONSILLECTOMY 06/2017 REVIEW OF SYSTEMS Review of Systems: Review of Systems Constitutional: Negative. HENT: Negative. Eyes: Negative. Respiratory: Negative. Cardiovascular: Negative. Gastrointestinal: Negative. Genitourinary: Positive for menstrual problem. Musculoskeletal: Negative. Skin: Negative. Neurological: Negative. All other systems reviewed and are negative. Hematological: Negative. Endocrine: Negative. Allergic/Immunologic: Negative. OBJECTIVE Objective: Physical Exam Constitutional: Appearance: Normal appearance. She is well-developed. Cardiovascular: Rate and Rhythm: Normal rate and regular rhythm. Pulmonary: Effort: Pulmonary effort is normal. Breath sounds: Normal breath sounds. Abdominal: General: Bowel sounds are normal. There is no distension. Palpations: Abdomen is soft. Tenderness: There is no abdominal tenderness. There is no guarding or rebound. Musculoskeletal: General: No swelling. Normal range of motion. Right lower leg: No edema. Left lower leg: No edema. Neurological: Mental Status: She is alert and oriented to person, place, and time. Skin: General: Skin is warm and dry. Psychiatric: Mood and Affect: Mood normal. Behavior: Behavior normal. Vitals and nursing note reviewed. Exam conducted with a clinical physician assistant present. Vitals: Estimated body mass index is 34.82 kg/m as calculated from the following: Height as of 07/10/22: 5' 2 . Weight as of this encounter: 190 lb 6.4 oz. BP: 122/70 No LMP recorded. ASSESSMENT & PLAN ICD-10-CM 1. control counseling Z30.09 2. Abnormal uterine bleeding (AUB) N93.9 US PELVIS-TRANSVAG IF INDICATED 3. Request for sterilization Z30.2 Pt presents with desires a form of control. Pt has recently been having pain over liver- recent imaging showed 5 lesions. Pt desires sterility. Pt to be scheduled for bilateral salpingectomy. Pt given ultrasound to have obtained. Pt is having MRI next month. Discussed Dr López referral. Pt given ultrasound for AUB. Documented by Rubi Arce LPN on behalf of: Yenny Ulloa DO documented in this encounter [facility] 01-30-2024 Note [facility] Gastroenterolog y Follow-Up Patient Visit CHIEF COMPLAINT Chief Complaint Patient presents with Follow-up HISTORY OF PRESENT ILLNESS: Myah Carpenter is a 38 y.o. female with PMHx of HTN, KATE, GERD. She presents today as a new patient, referred by her PCP for abdominal pain and alternating bowel habits. Patient states that abdominal pain first began a few years ago, however has recently worsening around July/August. Pain is described as an intermittent cramping/aching located in RUQ with radiation across upper abdomen. Notes that greasy/fatty foods, and some dairy products can worsen pain, and marijuana occasionally alleviates pain. Pain increases at times following defecation. She is currently having alternating bowel habits with loose to formed stools, daily to every other day. Mentions that at times stools tend to look greasy/oily. Endorses occasional straining with frequent incomplete evacuation. No melena or hematochezia. Associated symptoms include nausea and bloating. In the past she has used Dulcolax and Miralax as needed for constipation, however no longer taking. Denies unintentional weight loss, decreased appetite, heartburn, regurgitation, dysphagia, vomiting. Patient has had prior colonoscopy in 2019 at [facility] in [place], with reported finding of polyps (report not available chart). No prior EGD. In addition to above symptoms, patient underwent MRI abdomen 10/28/2023, which demonstrated multiple enhancing lesions throughout the liver, which could represent hepatic adenomas and/or focal nodular hyperplasias, or both. MRI abdomen without and with contrast with Eovist in 3 months was recommended. She is currently on oral contraceptives, in which she has been on for about 20 so years for menstrual cycle regulation. Also notes that she previously used alcohol heavily for about 5 years, but has been sober for the past 14 months. Most recent LFTs are normal: AST 15, ALT 24, ALP 60, TB 0.8 (11/18/2023). Surgical history: Cholecystectomy in 2012 d/t cholelithiasis Family history: Denies FHx of colon cancer, IBD, celiac disease, and liver disease, however reports several digestive issues in mother - possible Crohns vs IBS Social history: Former smoker (quit in 2019), previous heavy EtOH use x5 years (has been sober for the past 14 months), daily marijuana use INTERVAL HISTORY 01/30/2024: Patient presents today in follow-up. Following LCV, patient underwent abdominal x-ray which demonstrated large fecal burden, in which a Miralax bowel purge was recommended. She reports that she was able to complete the purge and felt well cleaned out afterwards. However, is now feeling more constipated, in which she has been using Miralax PRN with some relief. Endorses continued intermittent RUQ abdominal pain, that has been occurring randomly. She describes the pain as feeling like things are getting folded up inside. Notes that leaning towards/laying on her left side tends to alleviate pain. Patient also reports mild postprandial bloating, in which she attributes to specific food triggers, including ice cream and white rice. Denies unintentional weight loss, decreased appetite, vomiting, lower extremity swelling. PREVIOUS LABS/IMAGING/ENDOSCOPY: XR abdomen 01/23/2024: FINDINGS: * Nonobstructive bowel gas pattern * No free air * No suspicious calcification * No definite organomegaly * Large amount retained fecal content particularly in the right colon MR abdomen w and wo contrast 10/28/2023: FINDINGS: The lung bases are clear. The visualized portions of the heart and pericardium are unremarkable. Abdominal aorta is nonaneurysmal. Portal, splenic, superior mesenteric veins patent. Noncirrhotic morphology of the liver. Multiple (at least 5) lesions throughout the liver demonstrating increased signal on diffusion sequence (no corresponding ADC map). Lesions appear mildly T2 hyperintense and iso to slightly hyperintense on precontrast T1 imaging. Lesions demonstrate uniform early arterial enhancement without washout. Gallbladder surgically absent. No biliary dilatation. The pancreatic parenchyma is unremarkable. No mass or cystic lesion identified. The splenic parenchyma is unremarkable. The adrenal glands are unremarkable. Left kidney is unremarkable. Intrinsically T1 right upper pole renal cyst measures 14 mm. No convincing postcontrast enhancement. Visualized portions of the bowel in upper abdomen are unremarkable. No enlarged lymph nodes. IMPRESSION: * Queried right renal lesion consistent with benign hemorrhagic/proteinaceous cyst requires no further imaging follow-up. * Multiple enhancing lesions throughout the could represent hepatic adenomas and/or focal nodular hyperplasias or both. Correlate with use of oral contraceptives. MRI abdomen without and with contrast with Eovist in 3 months is recommended. US abdomen 10/07/2023: FINDINGS: The visualiz (more content not included)... [facility] 12-17-2023 Miscellaneous Notes Fax received from [facility] requesting refill of Lisinopril documented in this encounter [email or web address] 12-17-2023 Telephone encounter Note Fax received from [facility] 12-17-2023 Miscellaneous Notes [facility] refill of Klor Con and Magnesium [facility] 12-17-2023 Telephone encounter Note [facility] requesting refill of Klor Con and Magnesium [facility] 12-02-2023 Note [facility] Gastroenterolog y New Patient Visit - History & Physical CHIEF COMPLAINT Chief Complaint Patient presents with New Patient Abdominal pain with nausea and alternating bowel habits. MRI results with liver lesions. HISTORY OF PRESENT ILLNESS: Myah Carpenter is a 38 y.o. female with PMHx of HTN, KATE, GERD. She presents today as a new patient, referred by her PCP for abdominal pain and alternating bowel habits. Patient states that abdominal pain first began a few years ago, however has recently worsening around July/August. Pain is described as an intermittent cramping/aching located in RUQ with radiation across upper abdomen. Notes that greasy/fatty foods, and some dairy products can worsen pain, and marijuana occasionally alleviates pain. Pain increases at times following defecation. She is currently having alternating bowel habits with loose to formed stools, daily to every other day. Mentions that at times stools tend to look greasy/oily. Endorses occasional straining with frequent incomplete evacuation. No melena or hematochezia. Associated symptoms include nausea and bloating. In the past she has used Dulcolax and Miralax as needed for constipation, however no longer taking. Denies unintentional weight loss, decreased appetite, heartburn, regurgitation, dysphagia, vomiting. Patient has had prior colonoscopy in 2019 at [facility], with reported finding of polyps (report not available chart). No prior EGD. In addition to above symptoms, patient underwent MRI abdomen 10/28/2023, which demonstrated multiple enhancing lesions throughout the liver, which could represent hepatic adenomas and/or focal nodular hyperplasias, or both. MRI abdomen without and with contrast with Eovist in 3 months was recommended. She is currently on oral contraceptives, in which she has been on for about 20 so years for menstrual cycle regulation. Also notes that she previously used alcohol heavily for about 5 years, but has been sober for the past 14 months. Most recent LFTs are normal: AST 15, ALT 24, ALP 60, TB 0.8 (11/18/2023). Surgical history: Cholecystectomy in 2011 d/t cholelithiasis Family history: Denies FHx of colon cancer, IBD, celiac disease, and liver disease, however reports several digestive issues in mother - possible Crohns vs IBS Social history: Former smoker (quit in 2019), previous heavy EtOH use x5 years (has been sober for the past 14 months), daily marijuana use PREVIOUS LABS/IMAGING/ENDOSCOPY: MR abdomen w and wo contrast 10/28/2023: FINDINGS: The lung bases are clear. The visualized portions of the heart and pericardium are unremarkable. Abdominal aorta is nonaneurysmal. Portal, splenic, superior mesenteric veins patent. Noncirrhotic morphology of the liver. Multiple (at least 5) lesions throughout the liver demonstrating increased signal on diffusion sequence (no corresponding ADC map). Lesions appear mildly T2 hyperintense and iso to slightly hyperintense on precontrast T1 imaging. Lesions demonstrate uniform early arterial enhancement without washout. Gallbladder surgically absent. No biliary dilatation. The pancreatic parenchyma is unremarkable. No mass or cystic lesion identified. The splenic parenchyma is unremarkable. The adrenal glands are unremarkable. Left kidney is unremarkable. Intrinsically T1 right upper pole renal cyst measures 14 mm. No convincing postcontrast enhancement. Visualized portions of the bowel in upper abdomen are unremarkable. No enlarged lymph nodes. IMPRESSION: * Queried right renal lesion consistent with benign hemorrhagic/proteinaceous cyst requires no further imaging follow-up. * Multiple enhancing lesions throughout the could represent hepatic adenomas and/or focal nodular hyperplasias or both. Correlate with use of oral contraceptives. MRI abdomen without and with contrast with Eovist in 3 months is recommended. US abdomen 10/07/2023: FINDINGS: The visualized pancreas appears normal, the body and tail are obscured due to overlying bowel gas. Normal sonographic appearance of the liver, normal liver echogenicity, no focal lesion is identified. The portal vein is patent with hepatopedal flow. The gallbladder is been removed. Common duct is nondilated and measures 2.2 mm. No hydronephrosis of the right kidney. There is a mildly complex cyst in the superior right kidney measuring up to 1.4 cm. IMPRESSION: * Normal sonographic appearance of the liver, no biliary dilatation. * Mildly complex cyst in the superior right kidney measuring up to 1.4 cm. Consider further evaluation with dedicated CT or MRI. No right hydronephrosis. HISTORY: Problem list: There is no problem list on file for this patient. Past Medical History: History reviewed. No pertinent past medical history. Past Surgical History: History reviewed. No pertinent surgical history. FAMILY HISTORY: No family history on file. SOCIAL HISTOR (more content not included)... [facility] 10-31-2023 Miscellaneous Notes ----- Message from VERN Morrissey sent at 10/30/2023 4:44 PM EDT ----- Reviewed. Patient notified of results and would like to be referred to [facility]. Please place referral. Referral in place please arrange documented in this encounter [facility] 10-31-2023 Telephone encounter Note ----- Message from VERN Morrissey sent at 10/30/2023 4:44 PM EDT ----- Reviewed. Patient notified of results and would like to be referred to [facility]. Please place referral. [facility] 10-31-2023 Telephone encounter Note Referral in place please arrange [facility] 10-07-2023 Miscellaneous Notes ----- Message from VIVIANA Roach sent at 10/08/2023 1:29 PM EDT ----- Patient notified of test results and verbalizes understanding. Patient wants to know if she should have her iron checked. She says her lips sometimes look blue,and she looks pale, her hands and feet feel cold and hurt. Order in place Patient notified of message and she verbalizes understanding documented in this encounter [facility] 10-07-2023 Telephone encounter Note ----- Message from VIVIANA Roach sent at 10/08/2023 1:29 PM EDT ----- Patient notified of test results and verbalizes understanding. Patient wants to know if she should have her iron checked. She says her lips sometimes look blue,and she looks pale, her hands and feet feel cold and hurt. [facility] 10-07-2023 Telephone encounter Note Order in place [facility] 10-07-2023 Telephone encounter Note Patient notified of message and she verbalizes understanding [facility] 10-02-2023 History of Presen t illness Narrative Images from the original note were not included. [id number] [facility] [id number] SUBJECTIVE: Patient ID: Myah Carpenter is a 38 y.o. female. 38 yo WF loss of 45-50 # with pheneterimine and then noticed slow pulse and lightheadedness Pt has right sided abdominal pain at time, s/p GB The following portions of the patient's history were reviewed and updated as appropriate: allergies, current medications, past family history, past medical history, past social history, past surgical history and problem list. REVIEW OF SYSTEMS: Review of Systems Constitutional: Positive for fatigue. Cardiovascular: Bradycardia PHYSICAL EXAMINATION: Vitals: 10/02/23 1607 BP: 130/88 BP Site: Left Arm BP Postition: Sitting BP CUFF SIZE: M (9-13 inches) Pulse: 60 Resp: 16 Temp: 36.6 C (97.9 F) TempSrc: Tympanic Weight: 88 kg (194 lb) Height: 160 cm (5' 3 ) Physical Exam Vitals and nursing note reviewed. Constitutional: Appearance: Normal appearance. HENT: Head: Normocephalic and atraumatic. Eyes: Extraocular Movements: Extraocular movements intact. Pupils: Pupils are equal, round, and reactive to light. Cardiovascular: Rate and Rhythm: Normal rate and regular rhythm. Pulses: Normal pulses. Heart sounds: Normal heart sounds. Skin: General: Skin is warm and dry. Neurological: General: No focal deficit present. Mental Status: She is alert and oriented to person, place, and time. Psychiatric: Mood and Affect: Mood normal. Behavior: Behavior normal. ASSESSMENT/PLAN: Myah was seen today for bp issues and right side pains. Diagnoses and all orders for this visit: RUQ abdominal pain - Ultrasound abdomen limited; Future - CBC auto differential; Future - Comprehensive metabolic panel; Future - Magnesium; Future Gitelman syndrome - CBC auto differential; Future - Comprehensive metabolic panel; Future - Magnesium; Future Follow-up: D/c metoprolol 25 mg bid Abd US ordered and labs Consider stopping metformin in the future documented in this encounter [facility] 07-03-2023 Miscellaneous Notes [facility] requesting refill of Pantoprazole documented in this encounter [facility] 07-03-2023 Telephone encounter Note [facility] requesting refill of Pantoprazole [facility] 07-01-2023 Miscellaneous Notes [facility] requesting refill of Famotidine documented in this encounter [facility] 07-01-2023 Telephone encounter Note [facility] requesting refill of Famotidine [facility] 06-20-2023 History of Presen t illness Narrative Images from the original note were not included. [id number] [facility] [id number] Subjective: Myah Carpenetr is a 38 y.o. female who presents for an Annual Wellness exam. 38 yo WF with wellness, recently lost 50 #, adipex, diet and exercise, no alcholol, no tobacco, The following portions of the patient's history were reviewed and updated as appropriate: medications, allergies, past medical history, past surgical history, social history, family history and immunization history Vitals: Vitals: 06/20/23 1438 BP: 130/80 BP Site: Left Arm BP Postition: Sitting BP CUFF SIZE: M (9-13 inches) Pulse: 80 Resp: 16 Temp: 36.2 C (97.1 F) TempSrc: Tympanic Weight: 89.6 kg (197 lb 8 oz) Height: 160 cm (5' 3 ) History: Patient Active Problem List Diagnosis Date Noted Moderate alcohol use disorder, in early remission ([facility] 01/21/2023 Chronic recurrent sinusitis 12/31/2018 Acute maxillary sinusitis 12/02/2018 Kidney stone 05/30/2018 Major depressive disorder, recurrent episode, moderate ([facility] 02/21/2018 Generalized anxiety disorder 02/21/2018 Severe obesity (BMI 35.0-39.9) with comorbidity ([facility] 11/22/2017 Migraine 09/06/2017 Gastroesophageal reflux disease without esophagitis 09/06/2017 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 S/P nasal septoplasty 07/16/2017 S/P tonsillectomy 07/16/2017 KATE (obstructive sleep apnea) 05/22/2017 Allergic rhinitis 05/22/2017 Past Medical History: Diagnosis Date Anxiety Depression GERD (gastroesophageal reflux disease) Gitelman syndrome Hypertension Migraine PONV (postoperative nausea and vomiting) Sleep apnea has CPAP, cant use Visual impairment glasses Past Surgical History: Procedure Laterality Date CHOLECYSTECTOMY COLONOSCOPY RESECTION SUBMUCOSAL Bilateral 07/08/2017 Performed by Rubens Moon MD at [facility] SEPTOPLASTY SEPTOPLASTY N/A 07/08/2017 Performed by Rubens Moon MD at [facility] TONSILLECTOMY ADENOIDECTOMY Bilateral 07/08/2017 Performed by Rubens Moon MD at [facility] Family History Problem Relation Age of Onset Anxiety disorder Mother Depression Mother Diabetes Mother Sleep apnea Mother Heart disease Father Lung cancer Paternal Aunt Lung cancer Paternal Grandfather Social History Tobacco Use Smoking status: Former Types: Cigarettes Smokeless tobacco: Never Substance Use Topics Alcohol use: Not Currently Comment: sober since 09/21/22 Allergies: No Known Allergies Immunization History Administered Date(s) Administered COVID-19, mRNA, LNP-S, PF, 100mcg/0.5mL Dose 08/10/2020, 09/07/2020, 03/24/2021, 01/06/2022 Covid-19, Mrna, Lnp-s, Bivalent, Pf, 50mcg/0.5ml or 25mcg/0.25ml 01/06/2022 Influenza, Im Trivalent Preservative 02/19/2017 Influenza, Injectable, quadrivalent (PF) 02/19/2017, 12/02/2017, 12/02/2018, 12/23/2019, 01/10/2021 Influenza, Recombinant, Quadrivalent, Injectable, Preserv 12/20/2021 Review of Systems: Review of Systems Respiratory: Negative. Cardiovascular: Negative. Gastrointestinal: Negative. Genitourinary: Negative. Objective: BP 130/80 (BP Site: Left Arm, BP Postition: Sitting, BP CUFF SIZE: M (9-13 inches)) Pulse 80 Temp 36.2 C (97.1 F) (Tympanic) Resp 16 Ht 160 cm (5' 3 ) Wt 89.6 kg (197 lb 8 oz) BMI 34.99 kg/m Physical Exam Vitals and nursing note reviewed. Constitutional: Appearance: Normal appearance. HENT: Head: Normocephalic and atraumatic. Eyes: Extraocular Movements: Extraocular movements intact. Pupils: Pupils are equal, round, and reactive to light. Cardiovascular: Rate and Rhythm: Normal rate and regular rhythm. Pulses: Normal pulses. Heart sounds: Normal heart sounds. Pulmonary: Effort: Pulmonary effort is normal. Breath sounds: Normal breath sounds. Skin: General: Skin is warm and dry. Neurological: General: No focal deficit present. Mental Status: She is alert and oriented to person, place, and time. Psychiatric: Mood and Affect: Mood normal. Behavior: Behavior normal. Assessment/Plan: Myah was seen today for annual exam. Diagnoses and all orders for this visit: BMI 34.0-34.9,adult - phentermine (ADIPEX-P) 37.5 mg tablet; Take 0.5 tablets (18.75 mg total) by mouth every morning before breakfast. Routine general medical examination at a health care facility - Lipid profile; Future - CBC auto differential; Future - Comprehensive metabolic panel; Future Plan Outpatient Medications Prior to Visit Medication Sig Dispense Refill ascorbic acid, vitamin C, (VITAMIN C) 1000 mg tablet Take 1 tablet (1,000 mg total) by mouth in the morning. bisacodyL (DULCOLAX, BISACODYL,) 5 mg EC tablet Take 1 tablet (5 mg total) by mouth. buPROPion SR (WELLBUTRIN SR) 100 mg 12 hr tablet Take 1 tablet (100 mg total) by mouth in the morning. 30 tablet 6 busPIRone (BUSPAR) 15 mg tablet Take 1 tablet (15 mg total) by mouth 3 (three) times a day. 90 tablet 6 DULoxetine (CYMBALTA) 60 mg capsule Take one capsule (60mg) by mouth in the morning. Take one capsule (60mg) by mouth in the afternoon. 60 capsule 6 ergocalciferol (DRISDOL) 1,250 mcg (50,000 unit) capsule Take 1 capsule (50,000 Units total) by mouth every 14 (fourteen) days. famotidine (PEPCID) 20 mg tablet TAKE ONE TABLET BY MOUTH EVERY MORNING 90 tablet 0 KLOR-CON M20 20 mEq CR tablet TAKE ONE TABLET BY MOUTH IN THE MORNING, AT NOON, IN THE EVENING AND BEFORE BEDTIME 360 tablet 0 LARISSIA 0.1-20 mg-mcg per tablet lisinopriL (PRINIVIL,ZESTRIL) 20 mg tablet TAKE ONE TABLET BY MOUTH EVERY MORNING 90 tablet 1 magnesium oxide (MAGOX) 400 mg tablet TAKE ONE TABLET BY MOUTH ONCE EVERY MORNING AND ONCE AT BEDTIME 180 tablet 0 metFORMIN (GLUCOPHAGE) 500 mg tablet Take 1 tablet (500 mg total) by mouth daily with breakfast. metoprolol tartrate (LOPRESSOR) 25 mg tablet TAKE ONE TABLET BY MOUTH EVERY MORNING AND TAKE ONE TABLET BY MOUTH EVERY NIGHT BEFORE BEDTIME 180 tablet 1 ondansetron (ZOFRAN) 4 mg tablet Take 1 tablet (4 mg total) by mouth every 6 (six) hours as needed for nausea. 30 tablet 3 pantoprazole (PROTONIX) 40 mg EC tablet TAKE ONE TABLET BY MOUTH EVERY MORNING 90 tablet 0 sod otlpl-tjbmvk-sigpvt bottle (NEILMED SINUS RINSE COMPLETE) packet with rinse device nasal solution Administer 1 packet into each nostril in the morning and 1 packet before bedtime. 60 packet 0 tiZANidine (ZANAFLEX) 2 mg tablet Take 1 tablet (2 mg total) by mouth every 6 (six) hours as needed. traZODone (DESYREL) 100 mg tablet Take 2 tablets (200 mg total) by mouth nightly. 60 tablet 6 levocetirizine (XYZAL) 5 mg tablet Take 1 tablet (5 mg total) by mouth nightly. (Patient not taking: Reported on 10/01/2022) 30 tablet 5 norethindrone-ethin estradioL (ORTHO-NOVUM ) 1-35 mg-mcg per tablet Take 1 tablet by mouth in the morning. (Patient not taking: Reported on 06/20/2023) No facility-administered medications prior to visit. Follow Up: Adipex 1/2 qd x 60days nursing visit Fasting labs documented in this encounter [facility] 06-18-2023 Miscellaneous Notes Refill to [facility] documented in this encounter [facility] 06-18-2023 Telephone encounter Note Refill to [facility] 05-16-2023 Miscellaneous Notes [facility] requesting refill of Magnesium documented in this encounter [facility] 05-16-2023 Telephone encounter Note [facility] requesting refill of Magnesium [facility] 07-04-2021 Evaluation note Encounter Date Diagnosis Assessment Notes Jun, Contact with and (suspected) exposure to other viral communicable diseases (ICD-10 - Z20.828) Jun, Viral upper respiratory illness (ICD-10 - J06.9) Drink plenty fluids, get plenty of rest. Take Tylenol Motrin as needed for aches pains or fevers. Follow-up with your family physician if no improvement in 3 to 4 days. Jun, Other Additional time spent conducting pre-visit phone call, screening for symptoms, instructions on social distancing, application and removal of PPE, and cleaning of examination room, equipment and supplies was preformed. Patient education given for testing methodology and results. Patient care instructions given in writting by [facility] document. [employer] Other Evaluation note* Diagnosis control counseling Abnormal uterine bleeding (AUB) Request for sterilization documented in this encounter [facility] HealthcareEvaluation note* Diagnosis Pre-op examination Request for sterilization documented in this encounter [facility] HealthcareEvaluation note* Diagnosis Gitelman syndrome- Primary Disorders of magnesium metabolism [facility] Diagnosis RUQ abdominal pain- Primary Abdominal pain, right upper quadrant Gitelman syndrome Disorders of magnesium metabolism [facility]* Diagnosis Chronic fatigue- Primary Other malaise and fatigue Gitelman syndrome Disorders of magnesium metabolism [facility]* Diagnosis Renal mass- Primary Unspecified disorder of kidney and ureter 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 [facility]* Diagnosis BMI 34.0-34.9,adult- Primary Routine general medical examination at a health care facility [facility]* Diagnosis Gitelman syndrome- Primary Disorders of magnesium metabolism Acute sinusitis, recurrence not specified, unspecified location documented in this encounter [facility]* Diagnosis Major depressive disorder, recurrent episode, moderate (CMS-HCC) Major depressive disorder, recurrent episode, moderate Generalized anxiety disorder documented in this [facility]* Diagnosis Major depressive disorder, recurrent episode, moderate (CMS-HCC) Major depressive disorder, recurrent episode, moderate Generalized anxiety disorder documented in [facility]* Diagnosis Gitelman syndrome- Primary Disorders of magnesium metabolism Chronic fatigue Other malaise and fatigue documented in [facility]* Diagnosis Well woman exam with routine gynecological exam Routine gynecological examination Menorrhagia with irregular cycle documented in this encounter [facility] HealthcareHistory general Narrative - Reported* Type Description Date Medical History seasonal allergies Medical History depression Medical History anxiety Medical History migraine headaches Medical History reflux Medical History hypokalemia Medical History insomnia Medical History gitelman disease Surgical History cholecystectomy 2012 Surgical History tonsillectomy Surgical History septoplasty Hospitalization History No know Hospitalization history [employer] Other InstructionsNot on filedocumented in this [facility] this [facility] filedocumented in [facility] filedocumented in this [facility] filedocumented in [facility] filedocumented in this encounter [facility] filedocumented in this encounter [facility] filedocumented in this [facility]* Attachments The following attachments cannot be sent through Care Everywhere. * Yearly Physical for Adults (Welsh) documented in [facility]ructionsNot on file documented in this encounter[facility] SystemInstructionsNot on file documented in this encounter[facility] SystemInstructionsNot on file documented [facility] on file documented in [facility] SystemInstructionsNot on file [facility] in [facility]ructionsNot on [facility] Summary Purpose Family History No Family History Records FoundNo Family History Records FoundNo Family History Records FoundNo Family History Records FoundNo Family History Records Found Advance Directives No Advanced Directives Records FoundNo Advanced Directives Records FoundNo Advanced Directives Records FoundNo Advanced Directives Records FoundNo Advanced Directives Records Found Reason for Referral Specialty Diagnoses / Procedures Referred By Jessica acosta Referred To Contact Diagnoses BMI 34.0-34.9,adult Maryellen Strong MD [address] [place] [address] Referral ID Status Reason Start Date Expiration Date V isits Requested Visits Authorized [id number] Pending Review 1 1 Specialty Diagnoses / Procedures Referred By Jessica acosta Referred To Contact Radiology Diagnoses Renal mass Cyst of right kidney Procedures MR abdomen with contrast Maryellen Strong MD [address] [place] [address] Referral ID Status Reason Start Date Expiration Date V isits Requested Visits Authorized [id number] Pending Review 10/10/2023 10/09/2024 1 1 Additional Source Comments REASON FOR VISIT (unrecogniz ed section and content) Reason Comments Contraception Reason Comments Pre-op Visit Reason Comments Med Refill Reason Comments BP issues right side pains Reason Onset Date Comments Med Refill 10/07/2023 Reason Comments Annual Exam Reason Onset Date Comments Med Refill 07/03/2023 Reason Onset Date Comments Med Refill 12/17/2023 Reason Comments Sinus Problem Reason Onset Date Comments Med Refill 03/02/2024 Reason Onset Date Comments Med Refill 06/26/2024 Reason Onset Date Comments Med Refill 06/29/2024 Reason Onset Date Comments Med Refill 07/24/2024 Reason Comments [facility] Visit INFORMATION SOURCE (unrecogn ized section and content) DATE CREATED AUTHOR 03/21/2022 [facility] DATE CREATED AUTHOR AUTHOR'S ORGANIZ ATION 02/11/2024 [facility] DATE CREATED AUTHOR AUTHOR'S ORGANIZ ATION 02/18/2024 [facility] EPIC DATE CREATED AUTHOR AUTHOR'S ORGANIZ ATION 06/28/2024 [facility] DATE CREATED AUTHOR AUTHOR'S ORGANIZ ATION 07/24/2024 [facility] Care Teams (unrecognized sec tion and content) Mechanical Systems Control Engineer Relationship Specialty Start Date End Date Maryellen Strong MD [address] [place] [address] PCP - General Family Medicine 03/18/23 Mechanical Systems Control Engineer Relationship Specialty Start Date End Date Maryellen Strong MD [address] [place] [address] PCP - General Family Medicine 03/18/23 Mechanical Systems Control Engineer Relationship Specialty Start Date End Date Maryellen Strong MD [address] [place] [address] PCP - General Family Medicine 03/18/23 Mechanical Systems Control Engineer Relationship Specialty Start Date End Date Maryellen Strong MD [address] [place] [address] PCP - General Family Medicine 03/18/23 Mechanical Systems Control Engineer Relationship Specialty Start Date End Date Maryellen Strong MD [address] [place] [address] PCP - General Family Medicine 10/04/21 Mechanical Systems Control Engineer Relationship Specialty Start Date End Date Maryellen Strong MD [address] [place] [address] PCP - General Family Medicine 10/04/21 Mechanical Systems Control Engineer Relationship Specialty Start Date End Date Maryellen Strong MD [address] [place] [address] PCP - General Family Medicine 10/04/21 Mechanical Systems Control Engineer Relationship Specialty Start Date End Date Maryellen Strong MD [address] [place] [address] PCP - General Family Medicine 10/04/21 Mechanical Systems Control Engineer Relationship Specialty Start Date End Date Maryellen Strong MD [address] [place] [address] PCP - General Family Medicine 10/04/21 Mechanical Systems Control Engineer Relationship Specialty Start Date End Date Maryellen Strong MD [address] [place] [address] PCP - General Family Medicine 10/04/21 Mechanical Systems Control Engineer Relationship Specialty Start Date End Date Maryellen Strong MD [address] [place] [address] PCP - General Family Medicine 10/04/21 Mechanical Systems Control Engineer Relationship Specialty Start Date End Date Maryellen Strong MD [address] [place] [address] PCP - General Family Medicine 10/04/21 Mechanical Systems Control Engineer Relationship Specialty Start Date End Date Maryellen Strong MD [address] [place] [address] PCP - General Family Medicine 10/04/21 Mechanical Systems Control Engineer Relationship Specialty Start Date End Date Maryellen Strong MD [address] [place] [address] PCP - General Family Medicine 10/04/21 Mechanical Systems Control Engineer Relationship Specialty Start Date End Date Maryellen Strong MD [address] [place] [address] PCP - [facility] 10/04/21 Mechanical Systems Control Engineer Relationship Specialty Start Date End Date Maryellen Strong MD [address] [place] [address] PCP - [facility] 10/04/21 Mechanical Systems Control Engineer Relationship Specialty Start Date End Date Maryellen Strong MD [address] [place] [address] PCP [facility] 10/04/21 Mechanical Systems Control Engineer Relationship Specialty Start Date End Date Maryellen Strong MD [address] 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 This clinical summary was aggregated from multiple sources. Caution should be exercised in using it in the provision of clinical care. This summary normalizes information from multiple sources, and as a consequence, information in this document may materially change the coding, format and clinical context of patient data. In addition, data may be omitted in some cases. CLINICAL DECISIONS SHOULD BE BASED ON THE PRIMARY CLINICAL RECORDS. [facility] [employer] [facility]. provides no warranty or guarantee of the accuracy or completeness of information in this document.
[2024-07-31 15:09] LABS: Age Gdln ACOG Testing Note (.); HPV Aptima Negative (Negative); IGP, Aptima HPV, rfx 16/18,45 Note (.)
== END 2024-07-27 20:36 | disposition home or self-care (01) ==
LOC: LAB 20:35
PROVIDERS: Visit Provider Obstetrics & Gynecology
DX: Z01.419 Encounter for gynecological examination (general) (routine) without abnormal findings (principal)
CPT/HCPCS: 87624; 88175